=== PATIENT | male | born 1945 | race Caucasian/White ===

== ENCOUNTER 2021-03-01 08:57 | Inpatient (IN) | payer OTHER, MEDICARE ==
--- NOTE | 2021-03-01 09:11 | EDM.PDOC ---
ED HPI GENERAL MEDICAL PROBLEM - General Chief Complaint: Neuro Symptoms/Deficits Stated Complaint: [facility] Time Seen by Provider: 03/01/21 08:57 - History of Present Illness INITIAL COMMENTS - FREE TEXT/NARRATIVE: 75-year-old male presents the emergency room brought in from a [facility] EMS service with speech problems and left-sided weakness. Last known normal: 9 PM last evening now 12 hours out. Patient is on Plavix. Patient is known by the EMS staff who believes his speech is worse than normal. They also noticed abnormal [id number] on the left side. Yesterday the patient had been falling more frequently than normal. He has a splint on his right lower leg and ulcerations consistent with diabetes on his left leg. He normally has no problems getting up from his falls however he got out of bed at some time during the night and fell could not get himself up his found him like this this morning. There was a test cell technician intercept with the [facility], test cell technician noticed that the patient was in atrial fib. At this time the patient cannot explain why he had difficulty getting self up from his fall. He thinks his speech is normal. And he does not believe he has any weakness at this point. The patient is alert and oriented. 11:00 At the opportunity discussed the patient's situation with the patient's patient thinks his speech and strength is all at baseline he is just getting progressively weaker over time. The patient has an ankle fracture he was treated at the [facility] here in [place]. The patient thought he was treated at the hospital here but I cannot find any information on this. - Related Data Allergies Allergy/AdvReac Type Severity Reaction Status Date / Time Penicillins Allergy Rash Verified 03/01/21 11:02 Home Meds: Home Meds Cholecalciferol (Vitamin D3) [Vitamin D3] 2,000 unit PO DAILY 12/26/20 [History] Clopidogrel Bisulfate [Plavix] 75 mg PO DAILY 12/26/20 [History] Latanoprost/Pf [Latanoprost 0.005% Eye Drop] 1 drop EYERT BEDTIME 12/26/20 [History] Nortriptyline HCl [Pamelor] 50 mg PO BEDTIME 12/26/20 [History] PARoxetine HCl [Paxil] 20 mg PO DAILY 12/26/20 [History] Rosuvastatin Calcium 20 mg PO BEDTIME 12/26/20 [History] metFORMIN [Glucophage] 850 mg PO BIDMEALS 12/26/20 [History] Multivitamin-Min/Iron/FA/Vit K [Multi-Day Plus Minerals Tablet] 1 tab PO DAILY 12/27/20 [History] Metoprolol Succinate 200 mg PO DAILY #20 tab.er.24h 12/29/20 [Rx] Spironolactone [Aldactone] 25 mg PO DAILY #20 tablet 12/29/20 [Rx] Torsemide 40 mg PO DAILY 03/01/21 [History] Valsartan 160 mg PO DAILY 03/01/21 [History] Past Medical History HEENT History: Reports: Glaucoma Cardiovascular History: Reports: High Cholesterol, Hypertension, Stents, Other (See Below) Other Cardiovascular History: stents to bilat legs for circulation cardiac stents also Neurological History: Reports: Neuropathy, Peripheral, Other (See Below) Other Neuro History: Restless leg syndrome. Psychiatric History: Reports: Depression, Other (See Below) Other Psychiatric History: Pt is forgetful at times Endocrine/Metabolic History: Reports: Diabetes, Type II - Infectious Disease History Infectious Disease History: Reports: Chicken Pox, Measles, Mumps - Past Surgical History HEENT Surgical History: Reports: Cataract Surgery, Oral Surgery Cardiovascular Surgical History: Reports: Coronary Artery Stent Endocrine Surgical History: Reports: None Neurological Surgical History: Reports: None Social & Family History - Family History Family Medical History: Unobtainable - Caffeine Use Caffeine Use: Reports: Coffee ED ROS GENERAL - Review of Systems Review Of Systems: See Below Constitutional: Reports: No Symptoms HEENT: Reports: No Symptoms Respiratory: Reports: No Symptoms Cardiovascular: Reports: No Symptoms GI/Abdominal: Reports: No Symptoms : Reports: No Symptoms Musculoskeletal: Reports: No Symptoms Neurological: Reports: Weakness (Reported left-sided weakness and difficulty doing [id number]). Denies: Headache Psychiatric: Reports: No Symptoms ED EXAM, GENERAL - Physical Exam Exam: See Below Exam Limited By: No Limitations General Appearance: Alert, No Apparent Distress Eye Exam: Bilateral Eye: PERRL Ears: Normal External Exam, Normal Canal, Hearing Grossly Normal, Normal TMs, Other Nose: Normal Inspection, Normal Mucosa Throat/Mouth: Normal Inspection, Normal Lips, Other (Mucous appears dry). No: Normal Teeth (dentures) Head: Atraumatic, Normocephalic Neck: Normal Inspection, Supple, Non-Tender, Full Range of Motion Respiratory/Chest: No Respiratory Distress, Lungs Clear, Normal Breath Sounds Cardiovascular: Normal Peripheral Pulses, Regular Rate, Rhythm, Other (trace edema) GI/Abdominal: Normal Bowel Sounds, Soft, Non-Tender Extremities: Normal Inspection, Normal Range of Motion, Other (Walking boot was removed from right lower extremity no obvious defect deformity he is got some superficial skin changes) Neurological: Other (No appreciable weakness is got significant disease most likely due to his diabetes) Skin Exam: Other (Multiple foot ulcerations) Lymphatic: No Adenopathy #2 Interpretation EKG Date: 03/01/21 Rhythm: NSR Rate (Beats/Min): 78 [place]: Normal P-Wave: Present QRS: Wide (Interventricular conduction delay) ST-T: Other (Inverted T waves V5 V6 aVF lead III, lead II) QT: Normal HI/PQ Interval: First-degree AV block Comparison: No Change (No significant change from 12/26/2020) EKG Interpretation Comments: Abnormal EKG Course - Vital Signs Last Recorded V/S: Last Vital Signs Temp 35.9 C L 03/01/21 08:57 Pulse 74 03/01/21 08:57 Resp 16 03/01/21 08:57 BP 143/84 H 03/01/21 08:57 Pulse Ox 95 03/01/21 08:57 - Orders/Labs/Meds Orders: Active Orders 24 hr Category Date Time Status Sodium Chloride 0.9% [Normal Saline] 1,000 ml Med 03/01/21 10:30 Active IV ASDIRECTED Medication Orders Sodium Chloride (Normal Saline) 1,000 mls @ 75 mls/hr IV ASDIRECTED HORACIO Last Admin: 03/01/21 10:50 Dose: 75 mls/hr Documented by: SWETHA Labs: Laboratory Tests 03/01/21 03/01/21 03/01/21 Range/Units 09:00 09:00 09:00 WBC 10.04 H (4.23-9.07) K/mm3 RBC 3.69 L (4.63-6.08) M/mm3 Hgb 11.6 L (13.7-17.5) gm/dl Hct 35.6 L (40.1-51.0) % MCV 96.5 H D (79.0-92.2) fl MCH 31.4 (25.7-32.2) pg MCHC 32.6 (32.2-35.5) g/dl RDW Std Deviation 51.0 H (35.1-43.9) fL Plt Count 317 (163-337) K/mm3 MPV 8.8 L (9.4-12.3) fl Neut % (Auto) 76.5 H (34.0-67.9) % Lymph % (Auto) 14.4 L (21.8-53.1) % Howard % (Auto) 7.6 (5.3-12.2) % Eos % (Auto) 1.0 (0.8-7.0) Baso % (Auto) 0.3 (0.1-1.2) % Neut # (Auto) 7.68 H (1.78-5.38) K/mm3 Lymph # (Auto) 1.45 (1.32-3.57) K/mm3 Howard # (Auto) 0.76 (0.30-0.82) K/mm3 Eos # (Auto) 0.10 (0.04-0.54) K/mm3 Baso # (Auto) 0.03 (0.01-0.08) K/mm3 PT 11.9 (9.7-12.0) SECONDS INR 1.08 APTT 29.8 (21.7-31.4) SECONDS Sodium 134 L (136-145) mEq/L Potassium 4.9 (3.5-5.1) mEq/L Chloride 99 (98-107) mEq/L Carbon Dioxide 25 (21-32) mEq/L Anion Gap 14.9 (5-15) BUN 60 H D (7-18) mg/dL Creatinine 2.3 H (0.7-1.3) mg/dL Est Cr Clr Drug Dosing TNP Estimated GFR (MDRD) 28 (>60) mL/min BUN/Creatinine Ratio 26.1 H (14-18) Glucose 133 H (70-99) mg/dL Hemoglobin A1c ( - 5.6) % Calcium 8.6 (8.5-10.1) mg/dL Total Bilirubin 0.8 (0.2-1.0) mg/dL AST 24 (15-37) U/L ALT 34 (16-63) U/L Alkaline Phosphatase 84 (46-116) U/L Troponin I < 0.017 (0.00-0.056) ng/mL Total Protein 7.1 (6.4-8.2) g/dl Albumin 3.3 L (3.4-5.0) g/dl Globulin 3.8 gm/dL Albumin/Globulin Ratio 0.9 L (1-2) SARS-CoV-2 RNA (JERRY) (NEGATIVE) 03/01/21 03/01/21 Range/Units 09:00 09:47 WBC (4.23-9.07) K/mm3 RBC (4.63-6.08) M/mm3 Hgb (13.7-17.5) gm/dl Hct (40.1-51.0) % MCV (79.0-92.2) fl MCH (25.7-32.2) pg MCHC (32.2-35.5) g/dl RDW Std Deviation (35.1-43.9) fL Plt Count (163-337) K/mm3 MPV (9.4-12.3) fl Neut % (Auto) (34.0-67.9) % Lymph % (Auto) (21.8-53.1) % Howard % (Auto) (5.3-12.2) % Eos % (Auto) (0.8-7.0) Baso % (Auto) (0.1-1.2) % Neut # (Auto) (1.78-5.38) K/mm3 Lymph # (Auto) (1.32-3.57) K/mm3 Howard # (Auto) (0.30-0.82) K/mm3 Eos # (Auto) (0.04-0.54) K/mm3 Baso # (Auto) (0.01-0.08) K/mm3 PT (9.7-12.0) SECONDS INR APTT (21.7-31.4) SECONDS Sodium (136-145) mEq/L Potassium (3.5-5.1) mEq/L Chloride (98-107) mEq/L Carbon Dioxide (21-32) mEq/L Anion Gap (5-15) BUN (7-18) mg/dL Creatinine (0.7-1.3) mg/dL Est Cr Clr Drug Dosing Estimated GFR (MDRD) (>60) mL/min BUN/Creatinine Ratio (14-18) Glucose (70-99) mg/dL Hemoglobin A1c 6.3 H ( - 5.6) % Calcium (8.5-10.1) mg/dL Total Bilirubin (0.2-1.0) mg/dL AST (15-37) U/L ALT (16-63) U/L Alkaline Phosphatase (46-116) U/L Troponin I (0.00-0.056) ng/mL Total Protein (6.4-8.2) g/dl Albumin (3.4-5.0) g/dl Globulin gm/dL Albumin/Globulin Ratio (1-2) SARS-CoV-2 RNA (JERRY) Negative (NEGATIVE) Meds: Medications Generic Name Dose Route Start Last Admin Trade Name Freq PRN Reason Stop Dose Admin Sodium Chloride 1,000 mls @ 75 mls/hr 03/01/21 10:30 03/01/21 10:50 Normal Saline IV 75 mls/hr ASDIRECTED [facility] Administration - Re-Assessments/Exams Free Text/Narrative Re-Assessment/Exam: 03/01/21 10:[address] is negative for any acute intracranial abnormalities his exam is inconsistent with a stroke however I cannot exclude TIA. EMS thought he was in A. fib further increasing his risk factors. The case was discussed with Dr. Blackmon, on-call neurologist at [facility] believes the patient should be transferred however they are not sure they have beds 1 call will get back to me if they can actually accept this patient and if they do it will be not immediately. 03/01/21 14:27 MRI shows no acute changes. Will discuss with the hospitalist to get him to address his renal functions and other medical conditions. 03/01/21 15:[address] Shipman, our hospitalist who will kindly assume care of the patient. Departure - Departure Time of Disposition: 15:09 Disposition: Admitted As Inpatient 68 Clinical Impression: Prerenal renal failure, Frequent falls, Dehydration - Discharge Information Referrals: Mary Jane Vaca MD [Primary Care Provider] - Forms: ED Department Discharge Sepsis Event Note (ED) - Focused Exam Vital Signs: Vital Signs Temp Pulse Resp BP Pulse Ox 03/01/21 08:57 35.9 C L 74 16 143/84 H 95 - My Orders Last 24 Hours: My Active Orders 03/01/21 10:30 Sodium Chloride 0.9% [Normal Saline] 1,000 ml IV ASDIRECTED - Assessment/Plan Last 24 Hours: My Active Orders 03/01/21 10:30 Sodium Chloride 0.9% [Normal Saline] 1,000 ml IV ASDIRECTED
--- NOTE | 2021-03-01 09:26 | CT ---
Head CT Technique: Multiple axial sections through the brain were obtained. Intravenous contrast was not utilized. Reconstructed coronal and sagittal images were also obtained. Comparison: Prior head CT study of 12/26/20. Findings: Ventricles along with basal cisterns and sulci over the convexities are slightly prominent. Diminished density is noted within portions of the periventricular white matter compatible with small vessel ischemic demyelination change. No other abnormal parenchymal densities are seen. No evidence of intracranial hemorrhage is seen. No midline shift or mass-effect is seen. Atherosclerotic calcification is seen within the vertebral arteries as well as carotid siphon. Bone window settings were reviewed. Visualized paranasal sinuses show nothing acute. Minimal mucosal thickening is seen within the inferior left mastoid sinus. Right mastoid sinus is clear. Impression: 1. Minimal mucosal thickening within the inferior left mastoid sinus which is most likely incidental. 2. Mild senescent change as noted above. 3. No acute intracranial abnormality is appreciated. Note: If patient's symptoms warrant further evaluation, MRI study could be considered. Diagnostic code #2
--- NOTE | 2021-03-01 09:55 | CR ---
Chest: Frontal view of the chest was obtained. Comparison: Prior chest x-ray of 12/26/20. Heart is enlarged. Lungs appear clear with no acute parenchymal change. Bony structures show nothing acute. Impression: 1. Cardiomegaly. Nothing acute is otherwise seen on frontal chest x-ray. Diagnostic code #3
[2021-03-01 10:28] LABS: HEMOGLOBIN A1C 6.3 %
[2021-03-01] MEDS: Sodium Chloride 0.9% 1,000 ML IV SCH (10:50)
--- NOTE | 2021-03-01 13:14 | MR ---
MRI brain Technique: T1 sagittal; T2, T2 FLAIR, T1 and diffusion axial; T1 weighted coronal images were also obtained. Comparison: Prior head CT exam performed earlier on the same day (9:02 AM). Findings: Ventricles along with basal cisterns and sulci over the convexities are mildly prominent. Increased signal is seen on the FLAIR sequence within the subcortical and periventricular white matter compatible with small vessel ischemic demyelination change. There is normal signal void seen within the major cerebral arteries within the skull base. Diffusion weighted images show nothing acute. Small retention cyst is noted within the right maxillary sinus measuring 1.3 cm. Impression: 1. Senescent change as noted above. 2. No acute diffusion abnormalities are seen. Diagnostic code #2
[2021-03-01] MEDS ORDERED: Ondansetron 4 MG/2 ML SDV IV PRN (17:16)
--- NOTE | 2021-03-01 19:50 | PCM.HP.2 ---
H&P History of Present Illness - General Date of Service: 03/01/21 Admit Problem/Dx: Admission Diagnosis/Problem Admission Diagnosis/Problem Prerenal renal failure - History of Present Illness Initial Comments - Free Text/Narative: 75-year-old male who recently had lower extremity vascular surgery in [place] presented to the emergency department secondary to bilateral lower extremity pain. Currently patient states he is having no pain. Pain is worse with ambulation. 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 Initially patient was believed to have neurological symptoms consistent with a stroke. EMS staff believed his speech was worse than normal and noticed abnormal [id number] on the left. Yesterday patient was falling more frequently than normal per emergency department notes. MRI of the brain was done in the emergency department which was negative for acute changes. Chest x-ray showed cardiomegaly but nothing otherwise acute. Lab work did demonstrate a BUN of 60 with a creatinine of 2.3 which is significantly worse than when he was here and November. No records are available from his hospitalization in [place]. Patient has a walking boot on his right leg. EKG shows normal sinus rhythm with ventricular rate of 78 bpm. Interventricular conduction delay with inverted T waves in V5, 6, aVF, lead III, lead II. First- degree AV block. White count was 10.04. - Related Data Allergies/Adverse Reactions: Allergies Allergy/AdvReac Type Severity Reaction Status Date / Time Penicillins Allergy Rash Verified 03/01/21 11:02 Home Medications: Home Meds Cholecalciferol (Vitamin D3) [Vitamin D3] 2,000 unit PO DAILY 12/26/20 [History] Clopidogrel Bisulfate [Plavix] 75 mg PO DAILY 12/26/20 [History] Latanoprost/Pf [Latanoprost 0.005% Eye Drop] 1 drop EYERT BEDTIME 12/26/20 [History] Nortriptyline HCl [Pamelor] 50 mg PO BEDTIME 12/26/20 [History] PARoxetine HCl [Paxil] 20 mg PO DAILY 12/26/20 [History] Rosuvastatin Calcium 20 mg PO BEDTIME 12/26/20 [History] metFORMIN [Glucophage] 850 mg PO BIDMEALS 12/26/20 [History] Multivitamin-Min/Iron/FA/Vit K [Multi-Day Plus Minerals Tablet] 1 tab PO DAILY 12/27/20 [History] Metoprolol Succinate 200 mg PO DAILY #20 tab.er.24h 12/29/20 [Rx] Spironolactone [Aldactone] 25 mg PO DAILY #20 tablet 12/29/20 [Rx] Torsemide 40 mg PO DAILY 03/01/21 [History] Valsartan 160 mg PO DAILY 03/01/21 [History] Past Medical History HEENT History: Reports: Glaucoma Cardiovascular History: Reports: Heart Failure, High Cholesterol, Hypertension, Stents, Other (See Below) Other Cardiovascular History: stents to bilat legs for circulation cardiac stents also Respiratory History: Reports: COPD Genitourinary History: Reports: Other (See Below) Other Genitourinary History: bladder cancer. Musculoskeletal History: Reports: Fracture Other Musculoskeletal History: rt ankle fracure in Jan 2021- wearing walking boot Neurological History: Reports: Neuropathy, Peripheral, Other (See Below) Other Neuro History: Restless leg syndrome. Psychiatric History: Reports: Depression, Other (See Below) Other Psychiatric History: Pt is forgetful at times Endocrine/Metabolic History: Reports: Diabetes, Type II Hematologic History: Reports: Anemia Oncologic (Cancer) History: Reports: Bladder Dermatologic History: Reports: Other (See Below) Other Dermatologic History: open and scabbed areas to arms/legs--"scratch myself bad." - Infectious Disease History Infectious Disease History: Reports: Chicken Pox, Measles, Mumps - Past Surgical History HEENT Surgical History: Reports: Cataract Surgery, Oral Surgery Cardiovascular Surgical History: Reports: Coronary Artery Stent Male Surgical History: Reports: TURBT-Transurethral Resection of Bladder Tumor Other Male Surgeries/Procedures: [place] for f/u Endocrine Surgical History: Reports: None Neurological Surgical History: Reports: None Social & Family History - Family History Family Medical History: Unobtainable - Tobacco Use Tobacco Use Status *Q: Current Every Day Tobacco User Years of Tobacco use: 60 Packs/Tins Daily: 1 - Caffeine Use Caffeine Use: Reports: Soda - Recreational Drug Use Recreational Drug Use: No H&P Review of Systems - Review of Systems: Review Of Systems: Comprehensive ROS is negative, except as noted in HPI. Exam - Exam Exam: See Below - Vital Signs Vital Signs: Last Vital Signs Temp 96.0 F L 03/01/21 17:55 Pulse 78 03/01/21 17:55 Resp 18 03/01/21 17:55 BP 142/89 H 03/01/21 17:55 Pulse Ox 97 03/01/21 17:55 Weight: 190 lb 12.8 oz - Exam Quality Assessment: No: Supplemental Oxygen General: Alert, Oriented, 4 HEENT: Conjunctiva Clear, Hearing Intact, Mucosa Moist & [place], Nares Patent Neck: Supple, Trachea Midline, 2 Lungs: Normal Respiratory Effort, Wheezing (Throughout both lung conley) Cardiovascular: Regular Rate, Regular Rhythm GI/Abdominal Exam: Normal Bowel Sounds, Soft, Non-Tender, No Organomegaly, No Distention, No Abnormal Bruit, No Mass Extremities: Normal Inspection, Normal Range of Motion, Non-Tender, No Pedal Edema, Normal Capillary Refill Skin: Other (Excoriations of the left lower extremity. Walking boot on the right.) Neurological: Cranial Nerves Intact Neuro Extensive - Mental Status: Alert, Oriented x3, Normal Mood/Affect - Patient Data Lab Results Last 24 hrs: Laboratory Results - last 24 hr 03/01/21 03/01/21 03/01/21 Range/Units 09:00 09:00 09:00 WBC 10.04 H (4.23-9.07) K/mm3 RBC 3.69 L (4.63-6.08) M/mm3 Hgb 11.6 L (13.7-17.5) gm/dl Hct 35.6 L (40.1-51.0) % MCV 96.5 H D (79.0-92.2) fl MCH 31.4 (25.7-32.2) pg MCHC 32.6 (32.2-35.5) g/dl RDW Std Deviation 51.0 H (35.1-43.9) fL Plt Count 317 (163-337) K/mm3 MPV 8.8 L (9.4-12.3) fl Neut % (Auto) 76.5 H (34.0-67.9) % Lymph % (Auto) 14.4 L (21.8-53.1) % [place] % (Auto) 7.6 (5.3-12.2) % Eos % (Auto) 1.0 (0.8-7.0) Baso % (Auto) 0.3 (0.1-1.2) % Neut # (Auto) 7.68 H (1.78-5.38) K/mm3 Lymph # (Auto) 1.45 (1.32-3.57) K/mm3 [place] # (Auto) 0.76 (0.30-0.82) K/mm3 Eos # (Auto) 0.10 (0.04-0.54) K/mm3 Baso # (Auto) 0.03 (0.01-0.08) K/mm3 PT 11.9 (9.7-12.0) SECONDS INR 1.08 APTT 29.8 (21.7-31.4) SECONDS Sodium 134 L (136-145) mEq/L Potassium 4.9 (3.5-5.1) mEq/L Chloride 99 (98-107) mEq/L Carbon Dioxide 25 (21-32) mEq/L Anion Gap 14.9 (5-15) BUN 60 H D (7-18) mg/dL Creatinine 2.3 H (0.7-1.3) mg/dL Est Cr Clr Drug Dosing TNP Estimated GFR (MDRD) 28 (>60) mL/min BUN/Creatinine Ratio 26.1 H (14-18) Glucose 133 H (70-99) mg/dL Hemoglobin A1c ( - 5.6) % Calcium 8.6 (8.5-10.1) mg/dL Total Bilirubin 0.8 (0.2-1.0) mg/dL AST 24 (15-37) U/L ALT 34 (16-63) U/L Alkaline Phosphatase 84 (46-116) U/L Troponin I < 0.017 (0.00-0.056) ng/mL NT-Pro-B Natriuret Pep (0-125) pg/mL Total Protein 7.1 (6.4-8.2) g/dl Albumin 3.3 L (3.4-5.0) g/dl Globulin 3.8 gm/dL Albumin/Globulin Ratio 0.9 L (1-2) SARS-CoV-2 RNA (JERRY) (NEGATIVE) 03/01/21 03/01/21 03/01/21 Range/Units 09:00 09:47 18:19 WBC (4.23-9.07) K/mm3 RBC (4.63-6.08) M/mm3 Hgb (13.7-17.5) gm/dl Hct (40.1-51.0) % MCV (79.0-92.2) fl MCH (25.7-32.2) pg MCHC (32.2-35.5) g/dl RDW Std Deviation (35.1-43.9) fL Plt Count (163-337) K/mm3 MPV (9.4-12.3) fl Neut % (Auto) (34.0-67.9) % Lymph % (Auto) (21.8-53.1) % [place] % (Auto) (5.3-12.2) % Eos % (Auto) (0.8-7.0) Baso % (Auto) (0.1-1.2) % Neut # (Auto) (1.78-5.38) K/mm3 Lymph # (Auto) (1.32-3.57) K/mm3 [place] # (Auto) (0.30-0.82) K/mm3 Eos # (Auto) (0.04-0.54) K/mm3 Baso # (Auto) (0.01-0.08) K/mm3 PT (9.7-12.0) SECONDS INR APTT (21.7-31.4) SECONDS Sodium (136-145) mEq/L Potassium (3.5-5.1) mEq/L Chloride (98-107) mEq/L Carbon Dioxide (21-32) mEq/L Anion Gap (5-15) BUN (7-18) mg/dL Creatinine (0.7-1.3) mg/dL Est Cr Clr Drug Dosing Estimated GFR (MDRD) (>60) mL/min BUN/Creatinine Ratio (14-18) Glucose (70-99) mg/dL Hemoglobin A1c 6.3 H ( - 5.6) % Calcium (8.5-10.1) mg/dL Total Bilirubin (0.2-1.0) mg/dL AST (15-37) U/L ALT (16-63) U/L Alkaline Phosphatase (46-116) U/L Troponin I (0.00-0.056) ng/mL NT-Pro-B Natriuret Pep 39022 H (0-125) pg/mL Total Protein (6.4-8.2) g/dl Albumin (3.4-5.0) g/dl Globulin gm/dL Albumin/Globulin Ratio (1-2) SARS-CoV-2 RNA (JERRY) Negative (NEGATIVE) Result Diagrams: 03/01/21 09:00 03/01/21 09:00 Sepsis Event Note - Evaluation Sepsis Screening Result: No Definite Risk - Focused Exam Vital Signs: Vital Signs Temp Pulse Resp BP Pulse Ox Pulse Ox 03/01/21 17:55 96.0 F L 78 18 142/89 H 97 03/01/21 17:36 95 03/01/21 08:57 96.6 F L 74 16 143/84 H 95 - Problem List (1) Leg pain, bilateral SNOMED Code(s): 70786145, 034000342 ICD Code: M79.604 - PAIN IN RIGHT LEG; M79.605 - PAIN IN LEFT LEG Status: Acute Current Visit: Yes (2) Acute renal insufficiency SNOMED Code(s): 034802895 ICD Code: N28.9 - DISORDER OF KIDNEY AND URETER, UNSPECIFIED Status: Acute Current Visit: Yes (3) Prerenal acute renal failure SNOMED Code(s): 362476599203741 ICD Code: N17.9 - ACUTE KIDNEY FAILURE, UNSPECIFIED Status: Acute Current Visit: Yes (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 SNOMED Code(s): 41949625, 749618836 ICD Code: I50.40 - UNSP COMBINED SYSTOLIC AND DIASTOLIC (CONGESTIVE) HRT FAIL Status: Acute Priority: High Current Visit: No Qualifiers: Heart failure chronicity: acute Qualified Code(s): I50.41 - Acute combined systolic (congestive) and diastolic (congestive) heart failure (5) Elevated brain natriuretic peptide (BNP) level SNOMED Code(s): 225324755, 123485010 ICD Code: R79.89 - OTHER SPECIFIED ABNORMAL FINDINGS OF BLOOD CHEMISTRY Status: Acute Priority: High Current Visit: No (6) Generalized weakness SNOMED Code(s): 81150839 ICD Code: R53.1 - WEAKNESS Status: Acute Priority: High Current Visit: No (7) HTN (hypertension) SNOMED Code(s): 46755813 ICD Code: I10 - ESSENTIAL (PRIMARY) HYPERTENSION Status: Chronic Priority: Medium Current Visit: No Qualifiers: Hypertension type: unspecified Qualified Code(s): I10 - Essential (primary) hypertension (8) History of coronary artery stent placement SNOMED Code(s): 735574267, 884329694 ICD Code: Z95.5 - PRESENCE OF CORONARY ANGIOPLASTY IMPLANT AND GRAFT Status: Chronic Priority: Low Current Visit: No Problem List Initiated/Reviewed/Updated: Yes Orders Last 24hrs: Active Orders 24 hr Category Date Time Status Admission Status [Patient Status] [ADT] Routine ADT 03/01/21 15:40 Active Oxygen Therapy [RC] PRN Care 03/01/21 17:16 Active Up With Assistance [RC] ASDIRECTED Care 03/01/21 17:16 Active VTE/DVT Education [RC] PER UNIT ROUTINE Care 03/01/21 17:16 Active Vital Signs [RC] Q4H Care 03/01/21 17:16 Active PT Evaluation and Treatment [CONS] Routine Cons 03/01/21 17:16 Active Consistent Carbohydrate Diet [DIET] Diet 03/01/21 Dinner Active Acetaminophen [TylenoL] Med 03/01/21 17:16 Active 650 mg PO Q4H PRN Clopidogrel [Plavix] Med 03/02/21 09:00 Active 75 mg PO DAILY Enoxaparin [Lovenox] Med 03/02/21 09:00 Active 40 mg SUBCUT DAILY Metoprolol Succinate [Toprol XL] Med 03/02/21 09:00 Active 200 mg PO DAILY Nortriptyline Med 03/01/21 21:00 Active 50 mg PO BEDTIME Ondansetron [Zofran] Med 03/01/21 17:16 Active 4 mg IV Q6H PRN PARoxetine [Paxil] Med 03/02/21 09:00 Active 20 mg PO DAILY Rosuvastatin [Crestor] Med 03/01/21 21:00 Active 20 mg PO BEDTIME Sodium Chloride 0.9% [Normal Saline] 1,000 ml Med 03/01/21 10:30 Active IV ASDIRECTED Spironolactone [Aldactone] Med 03/02/21 09:00 Active 25 mg PO DAILY Weight bearing status [OM.PC] Routine Oth 03/01/21 18:27 Ordered Resuscitation Status Routine Resus Stat 03/01/21 17:16 Ordered Medication Orders Acetaminophen (Acetaminophen 325 Mg Tab) 650 mg PO Q4H PRN PRN Reason: Pain (Mild 1-3)/fever Clopidogrel Bisulfate (Clopidogrel 75 Mg Tab) 75 mg PO DAILY [facility] Enoxaparin Sodium (Enoxaparin 40 Mg/0.4 Ml Syringe) 40 mg SUBCUT DAILY [facility] Sodium Chloride (Normal Saline) 1,000 mls @ 75 mls/hr IV ASDIRECTED [facility] Last Admin: 03/01/21 10:50 Dose: 75 mls/hr Documented by: SWETHA Metoprolol Succinate (Metoprolol Succinate 50 Mg Tab.Er) 200 mg PO DAILY [facility] Nortriptyline HCl (Nortriptyline 25 Mg Cap) 50 mg PO BEDTIME [facility] Ondansetron HCl (Ondansetron 4 Mg/2 Ml Sdv) 4 mg IV Q6H PRN PRN Reason: Nausea/Vomiting Paroxetine HCl (Paroxetine 20 Mg Tab) 20 mg PO DAILY [facility] Rosuvastatin Calcium (Rosuvastatin 10 Mg Tab) 20 mg PO BEDTIME [facility] Spironolactone (Spironolactone 25 Mg Tab) 25 mg PO DAILY [facility] Assessment/Plan Comment:: 75-year-old male with history of diabetes, peripheral vascular disease, mixed congestive heart failure presents to the emergency department with lower extremity pain. Lower extremity pain Peripheral vascular disease post lower extremity vascular stenting Coronary artery disease * Patient presents with worsening pain in his lower extremities. * Initial concern for CVA ruled out with MRI * Currently patient states he is having no pain. Pain is worse with ambulation. 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 Pseudonormal, grade 2, pattern of LV diastolic filling. Trace aortic and mitral valve regurgitation. * proBNP today is 27,672. This is likely spuriously high because of his renal failure. Patient has only minimal lower extremity edema and chest x-ray shows no significant vascular congestion. Lung sounds are mainly significant for wheezing. Diabetes * Hemoglobin A1c 6.3 * Home medications include Metformin Acute on chronic renal insufficiency/prerenal * BUN 60 and creatinine 2.3 * When patient was discharged from here in November creatinine was 1.3 * Estimated GFR 28 today and 54 on December 29 * Currently on torsemide 40 mg daily and spironolactone 25 mg daily Tobaccoism/COPD * Lungs wheezy throughout Review of his previous hospitalization shows he was discharged on Entresto which is not on his home meds at this time. He was also sent home on 40 mg of Lasix and 25 mg of spironolactone. This apparently was changed to torsemide 40 mg. Patient was also started on valsartan as an outpatient instead of Entresto. Plan * Admit to medical floor on telemetry * PT * Gradual and cautious fluid resuscitation secondary to prerenal failure. * Close monitoring of respiratory status * Offer nicotine patch * Hold torsemide and continue spironolactone * Hold valsartan secondary to renal failure * Sliding scale insulin and bedside glucose monitoring 4 times daily * Lyle for foot pain and continue nortriptyline 50 mg daily * VTE prophylaxis with Lovenox * CODE STATUS: Full code - Mortality Measure Prognosis:: Good
[2021-03-01] MEDS ORDERED: Acetaminophen/HYDROcodone 325-5 MG Tab PO PRN (19:54)
[2021-03-01] MEDS: Nortriptyline 25 MG Cap PO SCH (20:37)
[2021-03-01] MEDS: Albuterol/Ipratropium 3.0-0.5 MG/3 ML Neb Soln NEB SCH (20:48)
[2021-03-01] MEDS ORDERED: Rosuvastatin 10 MG Tab PO SCH (21:00)
[2021-03-01] MEDS: Insulin Lispro 100 Unit/ML 3 ML KwikPen SUBCUT SCH (21:18)
[2021-03-02] MEDS: Albuterol/Ipratropium 3.0-0.5 MG/3 ML Neb Soln NEB SCH ×4 (02:50→20:36)
[2021-03-02] MEDS: Acetaminophen 325 MG Tab PO PRN (04:56)
[2021-03-02] MEDS: Sodium Chloride 0.9% 1,000 ML IV SCH (06:44)
[2021-03-02] MEDS: Insulin Lispro 100 Unit/ML 3 ML KwikPen SUBCUT SCH ×4 (06:52→21:26)
[2021-03-02] MEDS: PARoxetine 20 MG Tab PO SCH (09:36)
[2021-03-02] MEDS: Metoprolol Succinate 50 MG Tab.ER PO SCH (09:36)
[2021-03-02] MEDS: Clopidogrel 75 MG Tab PO SCH (09:36)
[2021-03-02] MEDS: Spironolactone 25 MG Tab PO SCH (09:36)
[2021-03-02] MEDS: Enoxaparin 40 MG/0.4 ML Syringe SUBCUT SCH (09:37)
--- NOTE | 2021-03-02 13:01 | PCM.PN ---
- General Info Date of Service: 03/02/21 Admission Dx/Problem (Free Text): Admission Diagnosis/Problem Admission Diagnosis/Problem Prerenal renal failure Subjective Update: Patient states he continues to feel well. He denies any shortness of breath. He has had some increased swelling in his legs. He did not keep on the overnight oximetry. There was concern that he has some apneic episodes while sleeping. During the day today he did have a drop in his oxygen saturations into the 80s while he slept requiring supplemental O2. He came right off the oxygen when he woke up. Oxygen saturations were in the mid 90s Functional Status: Reports: Pain Controlled - Review of Systems General: Reports: No Symptoms HEENT: Reports: No Symptoms Pulmonary: Reports: No Symptoms Cardiovascular: Reports: No Symptoms Musculoskeletal: Reports: No Symptoms Neurological: Reports: No Symptoms Psychiatric: Reports: No Symptoms - Patient Data Vitals - Most Recent: Last Vital Signs Temp 96.6 F L 03/02/21 11:58 Pulse 76 03/02/21 11:58 Resp 19 03/02/21 11:58 BP 147/91 H 03/02/21 11:58 Pulse Ox 91 L 03/02/21 11:58 Weight - Most Recent: 192 lb 3.2 oz I&O - Last 24 Hours: Intake & Output 03/01/21 03/02/21 03/02/21 22:59 06:59 14:59 Intake Total 1293 Output Total 1450 Balance -157 Lab Results Last 24 Hours: Laboratory Results - last 24 hr 03/01/21 03/01/21 03/02/21 Range/Units 18:19 21:05 05:40 WBC 8.28 (4.23-9.07) K/mm3 RBC 3.82 L (4.63-6.08) M/mm3 Hgb 12.0 L (13.7-17.5) gm/dl Hct 36.8 L (40.1-51.0) % MCV 96.3 H (79.0-92.2) fl MCH 31.4 (25.7-32.2) pg MCHC 32.6 (32.2-35.5) g/dl RDW Std Deviation 51.4 H (35.1-43.9) fL Plt Count 294 (163-337) K/mm3 MPV 8.9 L (9.4-12.3) fl Neut % (Auto) 77.3 H (34.0-67.9) % Lymph % (Auto) 14.3 L (21.8-53.1) % [place] % (Auto) 7.0 (5.3-12.2) % Eos % (Auto) 0.8 (0.8-7.0) Baso % (Auto) 0.4 (0.1-1.2) % Neut # (Auto) 6.40 H (1.78-5.38) K/mm3 Lymph # (Auto) 1.18 L (1.32-3.57) K/mm3 [place] # (Auto) 0.58 (0.30-0.82) K/mm3 Eos # (Auto) 0.07 (0.04-0.54) K/mm3 Baso # (Auto) 0.03 (0.01-0.08) K/mm3 Sodium (136-145) mEq/L Potassium (3.5-5.1) mEq/L Chloride (98-107) mEq/L Carbon Dioxide (21-32) mEq/L Anion Gap (5-15) BUN (7-18) mg/dL Creatinine (0.7-1.3) mg/dL Est Cr Clr Drug Dosing mL/min Estimated GFR (MDRD) (>60) mL/min BUN/Creatinine Ratio (14-18) Glucose (70-99) mg/dL POC Glucose 134 H (70-99) mg/dL Calcium (8.5-10.1) mg/dL Magnesium (1.8-2.4) mg/dL Total Bilirubin (0.2-1.0) mg/dL AST (15-37) U/L ALT (16-63) U/L Alkaline Phosphatase (46-116) U/L NT-Pro-B Natriuret Pep 85978 H (0-125) pg/mL Total Protein (6.4-8.2) g/dl Albumin (3.4-5.0) g/dl Globulin gm/dL Albumin/Globulin Ratio (1-2) 03/02/21 03/02/21 03/02/21 Range/Units 05:40 06:28 11:25 WBC (4.23-9.07) K/mm3 RBC (4.63-6.08) M/mm3 Hgb (13.7-17.5) gm/dl Hct (40.1-51.0) % MCV (79.0-92.2) fl MCH (25.7-32.2) pg MCHC (32.2-35.5) g/dl RDW Std Deviation (35.1-43.9) fL Plt Count (163-337) K/mm3 MPV (9.4-12.3) fl Neut % (Auto) (34.0-67.9) % Lymph % (Auto) (21.8-53.1) % [place] % (Auto) (5.3-12.2) % Eos % (Auto) (0.8-7.0) Baso % (Auto) (0.1-1.2) % Neut # (Auto) (1.78-5.38) K/mm3 Lymph # (Auto) (1.32-3.57) K/mm3 [place] # (Auto) (0.30-0.82) K/mm3 Eos # (Auto) (0.04-0.54) K/mm3 Baso # (Auto) (0.01-0.08) K/mm3 Sodium 136 (136-145) mEq/L Potassium 4.9 (3.5-5.1) mEq/L Chloride 101 (98-107) mEq/L Carbon Dioxide 23 (21-32) mEq/L Anion Gap 16.9 H (5-15) BUN 54 H (7-18) mg/dL Creatinine 2.1 H (0.7-1.3) mg/dL Est Cr Clr Drug Dosing 31.33 mL/min Estimated GFR (MDRD) 31 (>60) mL/min BUN/Creatinine Ratio 25.7 H (14-18) Glucose 123 H (70-99) mg/dL POC Glucose 118 H 104 H (70-99) mg/dL Calcium 8.6 (8.5-10.1) mg/dL Magnesium 1.9 (1.8-2.4) mg/dL Total Bilirubin 0.9 (0.2-1.0) mg/dL AST 22 (15-37) U/L ALT 33 (16-63) U/L Alkaline Phosphatase 87 (46-116) U/L NT-Pro-B Natriuret Pep (0-125) pg/mL Total Protein 6.6 (6.4-8.2) g/dl Albumin 3.4 (3.4-5.0) g/dl Globulin 3.2 gm/dL Albumin/Globulin Ratio 1.1 (1-2) Med Orders - Current: Current Medications Acetaminophen (Acetaminophen 325 Mg Tab) 650 mg PO Q4H PRN PRN Reason: Pain (Mild 1-3)/fever Last Admin: 03/02/21 04:56 Dose: 650 mg Documented by: Hydrocodone Bitart/Acetaminophen (Acetaminophen/Hydrocodone 325-5 Mg Tab) 1 tab PO Q4H PRN PRN Reason: Pain (moderate 4-6) Albuterol/Ipratropium (Albuterol/Ipratropium 3.0-0.5 Mg/3 Ml Neb Soln) 3 ml NEB Q6HRRT [facility] Last Admin: 03/02/21 09:23 Dose: 3 ml Documented by: Clopidogrel Bisulfate (Clopidogrel 75 Mg Tab) 75 mg PO DAILY [facility] Last Admin: 03/02/21 09:36 Dose: 75 mg Documented by: Enoxaparin Sodium (Enoxaparin 40 Mg/0.4 Ml Syringe) 40 mg SUBCUT DAILY [facility] Last Admin: 03/02/21 09:37 Dose: 40 mg Documented by: Sodium Chloride (Normal Saline) 1,000 mls @ 75 mls/hr IV ASDIRECTED [facility] Last Admin: 03/02/21 06:44 Dose: 75 mls/hr Documented by: Insulin Human Lispro (Insulin Lispro 100 Unit/Ml 3 Ml Kwikpen) 0 unit SUBCUT QIDACANDBED [facility]; Protocol Last Admin: 03/02/21 12:10 Dose: Not Given Documented by: Metoprolol Succinate (Metoprolol Succinate 50 Mg Tab.Er) 200 mg PO DAILY [facility] Last Admin: 03/02/21 09:36 Dose: 200 mg Documented by: Nortriptyline HCl (Nortriptyline 25 Mg Cap) 50 mg PO BEDTIME [facility] Last Admin: 03/01/21 20:37 Dose: 50 mg Documented by: Ondansetron HCl (Ondansetron 4 Mg/2 Ml Sdv) 4 mg IV Q6H PRN PRN Reason: Nausea/Vomiting Paroxetine HCl (Paroxetine 20 Mg Tab) 20 mg PO DAILY [facility] Last Admin: 03/02/21 09:36 Dose: 20 mg Documented by: Rosuvastatin Calcium (Rosuvastatin 10 Mg Tab) 40 mg PO BEDTIME [facility] Spironolactone (Spironolactone 25 Mg Tab) 25 mg PO DAILY [facility] Last Admin: 03/02/21 09:36 Dose: 25 mg Documented by: Discontinued Medications Rosuvastatin Calcium (Rosuvastatin 10 Mg Tab) 20 mg PO BEDTIME [facility] Last Admin: 03/01/21 20:37 Dose: 20 mg Documented by: - Exam Quality Assessment: No: Supplemental Oxygen General: Alert HEENT: Pupils Equal, Mucous Membr. Moist/[place] Neck: Supple Lungs: Normal Respiratory Effort, Wheezing Cardiovascular: Regular Rate, Regular Rhythm GI/Abdominal Exam: Normal Bowel Sounds, Soft, Non-Tender, No Distention Extremities: Normal Inspection, Normal Range of Motion, Non-Tender, No Pedal Edema Skin: Warm, Dry, Intact Neurological: No New Focal Deficit - Patient Data Lab Results Last 24 hrs: Laboratory Results - last 24 hr 03/01/21 03/01/21 03/02/21 Range/Units 18:19 21:05 05:40 WBC 8.28 (4.23-9.07) K/mm3 RBC 3.82 L (4.63-6.08) M/mm3 Hgb 12.0 L (13.7-17.5) gm/dl Hct 36.8 L (40.1-51.0) % MCV 96.3 H (79.0-92.2) fl MCH 31.4 (25.7-32.2) pg MCHC 32.6 (32.2-35.5) g/dl RDW Std Deviation 51.4 H (35.1-43.9) fL Plt Count 294 (163-337) K/mm3 MPV 8.9 L (9.4-12.3) fl Neut % (Auto) 77.3 H (34.0-67.9) % Lymph % (Auto) 14.3 L (21.8-53.1) % [place] % (Auto) 7.0 (5.3-12.2) % Eos % (Auto) 0.8 (0.8-7.0) Baso % (Auto) 0.4 (0.1-1.2) % Neut # (Auto) 6.40 H (1.78-5.38) K/mm3 Lymph # (Auto) 1.18 L (1.32-3.57) K/mm3 [place] # (Auto) 0.58 (0.30-0.82) K/mm3 Eos # (Auto) 0.07 (0.04-0.54) K/mm3 Baso # (Auto) 0.03 (0.01-0.08) K/mm3 Sodium (136-145) mEq/L Potassium (3.5-5.1) mEq/L Chloride (98-107) mEq/L Carbon Dioxide (21-32) mEq/L Anion Gap (5-15) BUN (7-18) mg/dL Creatinine (0.7-1.3) mg/dL Est Cr Clr Drug Dosing mL/min Estimated GFR (MDRD) (>60) mL/min BUN/Creatinine Ratio (14-18) Glucose (70-99) mg/dL POC Glucose 134 H (70-99) mg/dL Calcium (8.5-10.1) mg/dL Magnesium (1.8-2.4) mg/dL Total Bilirubin (0.2-1.0) mg/dL AST (15-37) U/L ALT (16-63) U/L Alkaline Phosphatase (46-116) U/L NT-Pro-B Natriuret Pep 08273 H (0-125) pg/mL Total Protein (6.4-8.2) g/dl Albumin (3.4-5.0) g/dl Globulin gm/dL Albumin/Globulin Ratio (1-2) 03/02/21 03/02/21 03/02/21 Range/Units 05:40 06:28 11:25 WBC (4.23-9.07) K/mm3 RBC (4.63-6.08) M/mm3 Hgb (13.7-17.5) gm/dl Hct (40.1-51.0) % MCV (79.0-92.2) fl MCH (25.7-32.2) pg MCHC (32.2-35.5) g/dl RDW Std Deviation (35.1-43.9) fL Plt Count (163-337) K/mm3 MPV (9.4-12.3) fl Neut % (Auto) (34.0-67.9) % Lymph % (Auto) (21.8-53.1) % [place] % (Auto) (5.3-12.2) % Eos % (Auto) (0.8-7.0) Baso % (Auto) (0.1-1.2) % Neut # (Auto) (1.78-5.38) K/mm3 Lymph # (Auto) (1.32-3.57) K/mm3 [place] # (Auto) (0.30-0.82) K/mm3 Eos # (Auto) (0.04-0.54) K/mm3 Baso # (Auto) (0.01-0.08) K/mm3 Sodium 136 (136-145) mEq/L Potassium 4.9 (3.5-5.1) mEq/L Chloride 101 (98-107) mEq/L Carbon Dioxide 23 (21-32) mEq/L Anion Gap 16.9 H (5-15) BUN 54 H (7-18) mg/dL Creatinine 2.1 H (0.7-1.3) mg/dL Est Cr Clr Drug Dosing 31.33 mL/min Estimated GFR (MDRD) 31 (>60) mL/min BUN/Creatinine Ratio 25.7 H (14-18) Glucose 123 H (70-99) mg/dL POC Glucose 118 H 104 H (70-99) mg/dL Calcium 8.6 (8.5-10.1) mg/dL Magnesium 1.9 (1.8-2.4) mg/dL Total Bilirubin 0.9 (0.2-1.0) mg/dL AST 22 (15-37) U/L ALT 33 (16-63) U/L Alkaline Phosphatase 87 (46-116) U/L NT-Pro-B Natriuret Pep (0-125) pg/mL Total Protein 6.6 (6.4-8.2) g/dl Albumin 3.4 (3.4-5.0) g/dl Globulin 3.2 gm/dL Albumin/Globulin Ratio 1.1 (1-2) Result Diagrams: 03/02/21 05:40 03/02/21 05:40 Sepsis Event Note - Evaluation Sepsis Screening Result: No Definite Risk - Focused Exam Vital Signs: Vital Signs Temp Pulse Resp BP Pulse Ox Pulse Ox 03/02/21 11:58 96.6 F L 76 19 147/91 H 91 L 03/02/21 09:36 76 146/90 H 03/02/21 09:25 99 03/02/21 07:26 96.6 F L 76 20 146/90 H 100 03/02/21 03:46 96.8 F L 70 18 120/75 98 03/02/21 02:50 91 L - Problem List & Annotations (1) Leg pain, bilateral SNOMED Code(s): 62906753, 523888431 Code(s): M79.604 - PAIN IN RIGHT LEG; M79.605 - PAIN IN LEFT LEG Status: Acute Current Visit: Yes (2) Acute renal insufficiency SNOMED Code(s): 192819311 Code(s): N28.9 - DISORDER OF KIDNEY AND URETER, UNSPECIFIED Status: Acute Current Visit: Yes (3) Prerenal acute renal failure SNOMED Code(s): 298121332531822 Code(s): N17.9 - ACUTE KIDNEY FAILURE, UNSPECIFIED Status: Acute Current Visit: Yes (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 SNOMED Code(s): 47671053, 008822115 Code(s): I50.40 - UNSP COMBINED SYSTOLIC AND DIASTOLIC (CONGESTIVE) HRT FAIL Status: Acute Priority: High Current Visit: No Qualifiers: Heart failure chronicity: acute Qualified Code(s): I50.41 - Acute combined systolic (congestive) and diastolic (congestive) heart failure (5) Elevated brain natriuretic peptide (BNP) level SNOMED Code(s): 431536921, 637697949 Code(s): R79.89 - OTHER SPECIFIED ABNORMAL FINDINGS OF BLOOD CHEMISTRY Status: Acute Priority: High Current Visit: No (6) Generalized weakness SNOMED Code(s): 74876908 Code(s): R53.1 - WEAKNESS Status: Acute Priority: High Current Visit: No (7) HTN (hypertension) SNOMED Code(s): 46242944 Code(s): I10 - ESSENTIAL (PRIMARY) HYPERTENSION Status: Chronic Priority: Medium Current Visit: No Qualifiers: Hypertension type: unspecified Qualified Code(s): I10 - Essential (primary) hypertension (8) History of coronary artery stent placement SNOMED Code(s): 567107378, 328125355 Code(s): Z95.5 - PRESENCE OF CORONARY ANGIOPLASTY IMPLANT AND GRAFT Status: Chronic Priority: Low Current Visit: No - Problem List Review Problem List Initiated/Reviewed/Updated: Yes - My Orders Last 24 Hours: My Active Orders 03/01/21 Dinner Consistent Carbohydrate Diet [DIET] 03/01/21 17:16 Oxygen Therapy [RC] PRN Up With Assistance [RC] BID VTE/DVT Education [RC] PER UNIT ROUTINE Vital Signs [RC] Q4HR PT Evaluation and Treatment [CONS] Routine Acetaminophen [TylenoL] 650 mg PO Q4H PRN Ondansetron [Zofran] 4 mg IV Q6H PRN Resuscitation Status Routine 03/01/21 18:27 Weight bearing status [OM.PC] Routine 03/01/21 19:51 Blood Glucose Check, Bedside [RC] WITHMEALSANDBED 03/01/21 19:54 Acetaminophen/HYDROcodone [[place] 325-5 MG] 1 tab PO Q4H PRN 03/01/21 20:25 RT Aerosol Therapy [RC] ASDIRECTED 03/01/21 20:27 Overnight Pulse Oximetry [RC] Click to Edit 03/01/21 21:00 Albuterol/Ipratropium [DuoNeb 3.0-0.5 MG/3 ML] 3 ml NEB Q6HRRT Nortriptyline 50 mg PO BEDTIME 03/01/21 22:00 Insulin Lispro [HumaLOG] See Protocol SUBCUT QIDACANDBED 03/02/21 09:00 Clopidogrel [Plavix] 75 mg PO DAILY Enoxaparin [Lovenox] 40 mg SUBCUT DAILY Metoprolol Succinate [Toprol XL] 200 mg PO DAILY PARoxetine [Paxil] 20 mg PO DAILY Spironolactone [Aldactone] 25 mg PO DAILY 03/02/21 21:00 Rosuvastatin [Crestor] 40 mg PO BEDTIME - Plan Plan:: 75-year-old male with history of diabetes, peripheral vascular disease, mixed congestive heart failure presents to the emergency department with lower extremity pain. Lower extremity pain Peripheral vascular disease post lower extremity vascular stenting Coronary artery disease * Patient presents with worsening pain in his lower extremities. * Initial concern for CVA ruled out with MRI * Currently patient states he is having no pain. Pain is worse with ambulation. 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 Pseudonormal, grade 2, pattern of LV diastolic filling. Trace aortic and mitral valve regurgitation. * proBNP today is 27,672. This is likely spuriously high because of his renal failure. Patient has only minimal lower extremity edema and chest x-ray shows no significant vascular congestion. Lung sounds are mainly significant for wheezing. Diabetes * Hemoglobin A1c 6.3 * Home medications include Metformin Acute on chronic renal insufficiency/prerenal * BUN 60 and creatinine 2.3 * When patient was discharged from here in November creatinine was 1.3 * Estimated GFR 28 today and 54 on December 29 * Currently on torsemide 40 mg daily and spironolactone 25 mg daily Tobaccoism/COPD * Lungs wheezy throughout Review of his previous hospitalization shows he was discharged on Entresto which is not on his home meds at this time. He was also sent home on 40 mg of Lasix and 25 mg of spironolactone. This apparently was changed to torsemide 40 mg. Patient was also started on valsartan as an outpatient instead of Entresto. 03/02/2021 75-year-old male with history of diabetes, peripheral vascular disease, heart failure with reduced ejection fraction and diastolic failure, recent fracture of the right ankle in a walking boot and multiple lower extremity wounds. Admitted with worsening lower extremity pain, prerenal acute renal failure, and heart failure. Creatinine decreased from 2.3-2.1 and BUN decreased from 60-54. Estimated GFR is slightly improved from 28-31. Blood sugars well controlled in the low to mid one hundreds. He has been on normal saline 75 mL an hour. He does have what appears to be sleep apnea, but he will not keep the oximetry on his finger overnight. He did have a significant drop in oxygen saturations when he took a nap during the day. We will try to use CPAP overnight. This should help both his heart failure and his sleep apnea. Continue trying to give him duo nebs. Recheck CBC, CMP, mag in the morning. Plan * Admit to medical floor on telemetry * PT * Stop IV fluid * Close monitoring of respiratory status * Nicotine patch 21 mcg daily * Continue to hold torsemide and continue spironolactone * Hold valsartan secondary to renal failure * Sliding scale insulin and bedside glucose monitoring 4 times daily * [place] for foot pain and continue nortriptyline 50 mg daily * VTE prophylaxis with Lovenox * CODE STATUS: Full code * manager field services informed me that family does not think she can take him home. Patient will be kept over the weekend for placement.
[2021-03-02] MEDS: Nicotine 21 MG/24 Hr Patch TRDERM SCH (18:28)
[2021-03-02] MEDS: Rosuvastatin 10 MG Tab PO SCH (21:52)
[2021-03-02] MEDS: Nortriptyline 25 MG Cap PO SCH (21:52)
[2021-03-03] MEDS: Albuterol/Ipratropium 3.0-0.5 MG/3 ML Neb Soln NEB SCH ×4 (02:15→20:24)
[2021-03-03] MEDS: Insulin Lispro 100 Unit/ML 3 ML KwikPen SUBCUT SCH ×4 (05:59→22:17)
[2021-03-03] MEDS: Metoprolol Succinate 50 MG Tab.ER PO SCH (08:05)
[2021-03-03] MEDS: Spironolactone 25 MG Tab PO SCH (08:05)
[2021-03-03] MEDS: Clopidogrel 75 MG Tab PO SCH (08:05)
[2021-03-03] MEDS: PARoxetine 20 MG Tab PO SCH (08:05)
[2021-03-03] MEDS: Nicotine 21 MG/24 Hr Patch TRDERM SCH (08:06)
[2021-03-03] MEDS: Enoxaparin 40 MG/0.4 ML Syringe SUBCUT SCH (08:06)
[2021-03-03] MEDS ORDERED: Furosemide 40 MG/4 ML VIAL IVPUSH SCH (10:00)
--- NOTE | 2021-03-03 11:52 | PCM.PN ---
- General Info Date of Service: 03/03/21 Admission Dx/Problem (Free Text): Admission Diagnosis/Problem Admission Diagnosis/Problem Prerenal renal failure Subjective Update: Patient continues to say he is feeling well. He denies any pain. Denies any shortness of breath, fever, chills. Functional Status: Reports: Pain Controlled - Review of Systems General: Reports: No Symptoms HEENT: Reports: No Symptoms Pulmonary: Reports: No Symptoms Cardiovascular: Reports: No Symptoms Gastrointestinal: Reports: No Symptoms Musculoskeletal: Reports: No Symptoms Neurological: Reports: No Symptoms Psychiatric: Reports: No Symptoms - Patient Data Vitals - Most Recent: Last Vital Signs Temp 97.2 F 03/03/21 07:16 Pulse 77 03/03/21 08:05 Resp 20 03/03/21 07:16 BP 138/87 03/03/21 08:05 Pulse Ox 99 03/03/21 07:16 Weight - Most Recent: 190 lb 9.6 oz I&O - Last 24 Hours: Intake & Output 03/02/21 03/03/21 03/03/21 22:59 06:59 14:59 Intake Total 1195 600 Output Total 750 Balance 1195 -150 Lab Results Last 24 Hours: Laboratory Results - last 24 hr 03/02/21 03/02/21 03/03/21 Range/Units 17:02 20:43 04:45 WBC 9.64 H (4.23-9.07) K/mm3 RBC 3.78 L (4.63-6.08) M/mm3 Hgb 11.8 L (13.7-17.5) gm/dl Hct 36.6 L (40.1-51.0) % MCV 96.8 H (79.0-92.2) fl MCH 31.2 (25.7-32.2) pg MCHC 32.2 (32.2-35.5) g/dl RDW Std Deviation 52.1 H (35.1-43.9) fL Plt Count 307 (163-337) K/mm3 MPV 8.6 L (9.4-12.3) fl Neut % (Auto) 78.9 H (34.0-67.9) % Lymph % (Auto) 12.3 L (21.8-53.1) % [place] % (Auto) 7.6 (5.3-12.2) % Eos % (Auto) 0.6 L (0.8-7.0) Baso % (Auto) 0.3 (0.1-1.2) % Neut # (Auto) 7.60 H (1.78-5.38) K/mm3 Lymph # (Auto) 1.19 L (1.32-3.57) K/mm3 [place] # (Auto) 0.73 (0.30-0.82) K/mm3 Eos # (Auto) 0.06 (0.04-0.54) K/mm3 Baso # (Auto) 0.03 (0.01-0.08) K/mm3 Sodium (136-145) mEq/L Potassium (3.5-5.1) mEq/L Chloride (98-107) mEq/L Carbon Dioxide (21-32) mEq/L Anion Gap (5-15) BUN (7-18) mg/dL Creatinine (0.7-1.3) mg/dL Est Cr Clr Drug Dosing mL/min Estimated GFR (MDRD) (>60) mL/min BUN/Creatinine Ratio (14-18) Glucose (70-99) mg/dL POC Glucose 147 H 115 H (70-99) mg/dL Calcium (8.5-10.1) mg/dL Phosphorus (2.6-4.7) mg/dL Magnesium (1.8-2.4) mg/dL Total Bilirubin (0.2-1.0) mg/dL AST (15-37) U/L ALT (16-63) U/L Alkaline Phosphatase (46-116) U/L C-Reactive Protein (<1.0) mg/dL Total Protein (6.4-8.2) g/dl Albumin (3.4-5.0) g/dl Globulin gm/dL Albumin/Globulin Ratio (1-2) 03/03/21 03/03/21 03/03/21 Range/Units 04:45 05:56 11:12 WBC (4.23-9.07) K/mm3 RBC (4.63-6.08) M/mm3 Hgb (13.7-17.5) gm/dl Hct (40.1-51.0) % MCV (79.0-92.2) fl MCH (25.7-32.2) pg MCHC (32.2-35.5) g/dl RDW Std Deviation (35.1-43.9) fL Plt Count (163-337) K/mm3 MPV (9.4-12.3) fl Neut % (Auto) (34.0-67.9) % Lymph % (Auto) (21.8-53.1) % [place] % (Auto) (5.3-12.2) % Eos % (Auto) (0.8-7.0) Baso % (Auto) (0.1-1.2) % Neut # (Auto) (1.78-5.38) K/mm3 Lymph # (Auto) (1.32-3.57) K/mm3 [place] # (Auto) (0.30-0.82) K/mm3 Eos # (Auto) (0.04-0.54) K/mm3 Baso # (Auto) (0.01-0.08) K/mm3 Sodium 139 (136-145) mEq/L Potassium 4.8 (3.5-5.1) mEq/L Chloride 105 (98-107) mEq/L Carbon Dioxide 24 (21-32) mEq/L Anion Gap 14.8 (5-15) BUN 46 H (7-18) mg/dL Creatinine 2.0 H (0.7-1.3) mg/dL Est Cr Clr Drug Dosing 32.90 mL/min Estimated GFR (MDRD) 33 (>60) mL/min BUN/Creatinine Ratio 23.0 H (14-18) Glucose 137 H (70-99) mg/dL POC Glucose 122 H 166 H (70-99) mg/dL Calcium 8.6 (8.5-10.1) mg/dL Phosphorus 4.3 (2.6-4.7) mg/dL Magnesium 2.1 (1.8-2.4) mg/dL Total Bilirubin 0.9 (0.2-1.0) mg/dL AST 24 (15-37) U/L ALT 30 (16-63) U/L Alkaline Phosphatase 83 (46-116) U/L C-Reactive Protein < 0.2 (<1.0) mg/dL Total Protein 6.4 (6.4-8.2) g/dl Albumin 3.3 L (3.4-5.0) g/dl Globulin 3.1 gm/dL Albumin/Globulin Ratio 1.1 (1-2) Med Orders - Current: Current Medications Acetaminophen (Acetaminophen 325 Mg Tab) 650 mg PO Q4H PRN PRN Reason: Pain (Mild 1-3)/fever Last Admin: 03/02/21 04:56 Dose: 650 mg Documented by: Hydrocodone Bitart/Acetaminophen (Acetaminophen/Hydrocodone 325-5 Mg Tab) 1 tab PO Q4H PRN PRN Reason: Pain (moderate 4-6) Albuterol/Ipratropium (Albuterol/Ipratropium 3.0-0.5 Mg/3 Ml Neb Soln) 3 ml NEB Q6HRRT [facility] Last Admin: 03/03/21 02:15 Dose: 3 ml Documented by: Clopidogrel Bisulfate (Clopidogrel 75 Mg Tab) 75 mg PO DAILY [facility] Last Admin: 03/03/21 08:05 Dose: 75 mg Documented by: Enoxaparin Sodium (Enoxaparin 40 Mg/0.4 Ml Syringe) 40 mg SUBCUT DAILY [facility] Last Admin: 03/03/21 08:06 Dose: 40 mg Documented by: Furosemide (Furosemide 40 Mg/4 Ml Vial) 40 mg IVPUSH DAILY [facility] Last Admin: 03/03/21 11:44 Dose: 40 mg Documented by: Insulin Human Lispro (Insulin Lispro 100 Unit/Ml 3 Ml Kwikpen) 0 unit SUBCUT QIDACANDBED [facility]; Protocol Last Admin: 03/03/21 11:43 Dose: 1 unit Documented by: Metoprolol Succinate (Metoprolol Succinate 50 Mg Tab.Er) 200 mg PO DAILY [facility] Last Admin: 03/03/21 08:05 Dose: 200 mg Documented by: Miscellaneous Information (Remove Patch) 0 ea TRDERM DAILY [facility] Last Admin: 03/03/21 08:12 Dose: 21 ea Documented by: Nicotine (Nicotine 21 Mg/24 Hr Patch) 21 mg TRDERM DAILY [facility] Last Admin: 03/03/21 08:06 Dose: 21 mg Documented by: Nortriptyline HCl (Nortriptyline 25 Mg Cap) 50 mg PO BEDTIME [facility] Last Admin: 03/02/21 21:52 Dose: 50 mg Documented by: Ondansetron HCl (Ondansetron 4 Mg/2 Ml Sdv) 4 mg IV Q6H PRN PRN Reason: Nausea/Vomiting Paroxetine HCl (Paroxetine 20 Mg Tab) 20 mg PO DAILY [facility] Last Admin: 03/03/21 08:05 Dose: 20 mg Documented by: Rosuvastatin Calcium (Rosuvastatin 10 Mg Tab) 40 mg PO BEDTIME [facility] Last Admin: 03/02/21 21:52 Dose: 40 mg Documented by: Spironolactone (Spironolactone 25 Mg Tab) 25 mg PO DAILY [facility] Last Admin: 03/03/21 08:05 Dose: 25 mg Documented by: Discontinued Medications Sodium Chloride (Normal Saline) 1,000 mls @ 75 mls/hr IV ASDIRECTED [facility] Stop: 03/02/21 14:00 Last Admin: 03/02/21 06:44 Dose: 75 mls/hr Documented by: Rosuvastatin Calcium (Rosuvastatin 10 Mg Tab) 20 mg PO BEDTIME [facility] Last Admin: 03/01/21 20:37 Dose: 20 mg Documented by: - Exam Quality Assessment: No: Supplemental Oxygen General: Alert, Oriented HEENT: Pupils Equal, Mucous Membr. Moist/[place] Neck: Supple Lungs: Normal Respiratory Effort, Crackles (Minimal bibasilar), Wheezing Cardiovascular: Regular Rate, Regular Rhythm GI/Abdominal Exam: Normal Bowel Sounds, Soft, Non-Tender, No Distention Extremities: Normal Inspection, Normal Range of Motion, Non-Tender, No Pedal Edema, Normal Capillary Refill Skin: Warm, Dry, Intact Psy/Mental Status: Alert, Normal Affect, Normal Mood - Patient Data Lab Results Last 24 hrs: Laboratory Results - last 24 hr 03/02/21 03/02/21 03/03/21 Range/Units 17:02 20:43 04:45 WBC 9.64 H (4.23-9.07) K/mm3 RBC 3.78 L (4.63-6.08) M/mm3 Hgb 11.8 L (13.7-17.5) gm/dl Hct 36.6 L (40.1-51.0) % MCV 96.8 H (79.0-92.2) fl MCH 31.2 (25.7-32.2) pg MCHC 32.2 (32.2-35.5) g/dl RDW Std Deviation 52.1 H (35.1-43.9) fL Plt Count 307 (163-337) K/mm3 MPV 8.6 L (9.4-12.3) fl Neut % (Auto) 78.9 H (34.0-67.9) % Lymph % (Auto) 12.3 L (21.8-53.1) % [place] % (Auto) 7.6 (5.3-12.2) % Eos % (Auto) 0.6 L (0.8-7.0) Baso % (Auto) 0.3 (0.1-1.2) % Neut # (Auto) 7.60 H (1.78-5.38) K/mm3 Lymph # (Auto) 1.19 L (1.32-3.57) K/mm3 [place] # (Auto) 0.73 (0.30-0.82) K/mm3 Eos # (Auto) 0.06 (0.04-0.54) K/mm3 Baso # (Auto) 0.03 (0.01-0.08) K/mm3 Sodium (136-145) mEq/L Potassium (3.5-5.1) mEq/L Chloride (98-107) mEq/L Carbon Dioxide (21-32) mEq/L Anion Gap (5-15) BUN (7-18) mg/dL Creatinine (0.7-1.3) mg/dL Est Cr Clr Drug Dosing mL/min Estimated GFR (MDRD) (>60) mL/min BUN/Creatinine Ratio (14-18) Glucose (70-99) mg/dL POC Glucose 147 H 115 H (70-99) mg/dL Calcium (8.5-10.1) mg/dL Phosphorus (2.6-4.7) mg/dL Magnesium (1.8-2.4) mg/dL Total Bilirubin (0.2-1.0) mg/dL AST (15-37) U/L ALT (16-63) U/L Alkaline Phosphatase (46-116) U/L C-Reactive Protein (<1.0) mg/dL Total Protein (6.4-8.2) g/dl Albumin (3.4-5.0) g/dl Globulin gm/dL Albumin/Globulin Ratio (1-2) 03/03/21 03/03/21 03/03/21 Range/Units 04:45 05:56 11:12 WBC (4.23-9.07) K/mm3 RBC (4.63-6.08) M/mm3 Hgb (13.7-17.5) gm/dl Hct (40.1-51.0) % MCV (79.0-92.2) fl MCH (25.7-32.2) pg MCHC (32.2-35.5) g/dl RDW Std Deviation (35.1-43.9) fL Plt Count (163-337) K/mm3 MPV (9.4-12.3) fl Neut % (Auto) (34.0-67.9) % Lymph % (Auto) (21.8-53.1) % [place] % (Auto) (5.3-12.2) % Eos % (Auto) (0.8-7.0) Baso % (Auto) (0.1-1.2) % Neut # (Auto) (1.78-5.38) K/mm3 Lymph # (Auto) (1.32-3.57) K/mm3 [place] # (Auto) (0.30-0.82) K/mm3 Eos # (Auto) (0.04-0.54) K/mm3 Baso # (Auto) (0.01-0.08) K/mm3 Sodium 139 (136-145) mEq/L Potassium 4.8 (3.5-5.1) mEq/L Chloride 105 (98-107) mEq/L Carbon Dioxide 24 (21-32) mEq/L Anion Gap 14.8 (5-15) BUN 46 H (7-18) mg/dL Creatinine 2.0 H (0.7-1.3) mg/dL Est Cr Clr Drug Dosing 32.90 mL/min Estimated GFR (MDRD) 33 (>60) mL/min BUN/Creatinine Ratio 23.0 H (14-18) Glucose 137 H (70-99) mg/dL POC Glucose 122 H 166 H (70-99) mg/dL Calcium 8.6 (8.5-10.1) mg/dL Phosphorus 4.3 (2.6-4.7) mg/dL Magnesium 2.1 (1.8-2.4) mg/dL Total Bilirubin 0.9 (0.2-1.0) mg/dL AST 24 (15-37) U/L ALT 30 (16-63) U/L Alkaline Phosphatase 83 (46-116) U/L C-Reactive Protein < 0.2 (<1.0) mg/dL Total Protein 6.4 (6.4-8.2) g/dl Albumin 3.3 L (3.4-5.0) g/dl Globulin 3.1 gm/dL Albumin/Globulin Ratio 1.1 (1-2) Result Diagrams: 03/03/21 04:45 03/03/21 04:45 Sepsis Event Note - Evaluation Sepsis Screening Result: No Definite Risk - Focused Exam Vital Signs: Vital Signs Temp Pulse Pulse Resp BP Pulse Ox Pulse Ox 03/03/21 08:05 77 138/87 03/03/21 07:16 97.2 F 77 20 138/87 99 03/03/21 03:27 97.2 F 85 22 H 141/87 H 100 03/03/21 02:16 95 03/03/21 01:48 80 95 03/03/21 00:00 98 - Problem List & Annotations (1) Leg pain, bilateral SNOMED Code(s): 71141996, 582713861 Code(s): M79.604 - PAIN IN RIGHT LEG; M79.605 - PAIN IN LEFT LEG Status: Acute Current Visit: Yes (2) Acute renal insufficiency SNOMED Code(s): 022457837 Code(s): N28.9 - DISORDER OF KIDNEY AND URETER, UNSPECIFIED Status: Acute Current Visit: Yes (3) Prerenal acute renal failure SNOMED Code(s): 158916852068634 Code(s): N17.9 - ACUTE KIDNEY FAILURE, UNSPECIFIED Status: Acute Current Visit: Yes (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 SNOMED Code(s): 64875578, 232165415 Code(s): I50.40 - UNSP COMBINED SYSTOLIC AND DIASTOLIC (CONGESTIVE) HRT FAIL Status: Acute Priority: High Current Visit: No Qualifiers: Heart failure chronicity: acute Qualified Code(s): I50.41 - Acute combined systolic (congestive) and diastolic (congestive) heart failure (5) Elevated brain natriuretic peptide (BNP) level SNOMED Code(s): 909197666, 513287955 Code(s): R79.89 - OTHER SPECIFIED ABNORMAL FINDINGS OF BLOOD CHEMISTRY Status: Acute Priority: High Current Visit: No (6) Generalized weakness SNOMED Code(s): 18644930 Code(s): R53.1 - WEAKNESS Status: Acute Priority: High Current Visit: No (7) HTN (hypertension) SNOMED Code(s): 64316562 Code(s): I10 - ESSENTIAL (PRIMARY) HYPERTENSION Status: Chronic Priority: Medium Current Visit: No Qualifiers: Hypertension type: unspecified Qualified Code(s): I10 - Essential (primary) hypertension (8) History of coronary artery stent placement SNOMED Code(s): 496737094, 145015122 Code(s): Z95.5 - PRESENCE OF CORONARY ANGIOPLASTY IMPLANT AND GRAFT Status: Chronic Priority: Low Current Visit: No (9) Open wound, lower leg SNOMED Code(s): 801809996 Code(s): S81.809A - UNSPECIFIED OPEN WOUND, UNSPECIFIED LOWER LEG, INIT ENCNTR Status: Acute Current Visit: Yes - Problem List Review Problem List Initiated/Reviewed/Updated: Yes - My Orders Last 24 Hours: My Active Orders 03/02/21 15:49 PT Evaluation and Treatment [CONS] Routine 03/02/21 17:15 Nicotine [Habitrol] 21 mg TRDERM DAILY 03/02/21 21:00 Rosuvastatin [Crestor] 40 mg PO BEDTIME 03/03/21 09:00 Remove Patch 0 ea TRDERM DAILY 03/03/21 10:00 Furosemide [Lasix] 40 mg IVPUSH DAILY 03/04/21 05:11 C-REACTIVE PROTEIN [CHEM] AM CBC WITH AUTO DIFF [HEME] AM CMP [COMPREHENSIVE METABOLIC PN,CMP] [CHEM] AM MAGNESIUM [CHEM] AM 03/05/21 05:11 C-REACTIVE PROTEIN [CHEM] AM CBC WITH AUTO DIFF [HEME] AM CMP [COMPREHENSIVE METABOLIC PN,CMP] [CHEM] AM MAGNESIUM [CHEM] AM 03/06/21 05:11 C-REACTIVE PROTEIN [CHEM] AM CBC WITH AUTO DIFF [HEME] AM CMP [COMPREHENSIVE METABOLIC PN,CMP] [CHEM] AM MAGNESIUM [CHEM] AM - Plan Plan:: 75-year-old male with history of diabetes, peripheral vascular disease, mixed congestive heart failure presents to the emergency department with lower extremity pain. Lower extremity pain Peripheral vascular disease post lower extremity vascular stenting Coronary artery disease * Patient presents with worsening pain in his lower extremities. * Initial concern for CVA ruled out with MRI * Currently patient states he is having no pain. Pain is worse with ambulation. 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 Pseudonormal, grade 2, pattern of LV diastolic filling. Trace aortic and mitral valve regurgitation. * proBNP today is 27,672. This is likely spuriously high because of his renal failure. Patient has only minimal lower extremity edema and chest x-ray shows no significant vascular congestion. Lung sounds are mainly significant for wheezing. Diabetes * Hemoglobin A1c 6.3 * Home medications include Metformin Acute on chronic renal insufficiency/prerenal * BUN 60 and creatinine 2.3 * When patient was discharged from here in November creatinine was 1.3 * Estimated GFR 28 today and 54 on December 29 * Currently on torsemide 40 mg daily and spironolactone 25 mg daily Tobaccoism/COPD * Lungs wheezy throughout Review of his previous hospitalization shows he was discharged on Entresto which is not on his home meds at this time. He was also sent home on 40 mg of Lasix and 25 mg of spironolactone. This apparently was changed to torsemide 40 mg. Patient was also started on valsartan as an outpatient instead of Entresto. 03/02/2021 75-year-old male with history of diabetes, peripheral vascular disease, heart failure with reduced ejection fraction and diastolic failure, recent fracture of the right ankle in a walking boot and multiple lower extremity wounds. Admitted with worsening lower extremity pain, prerenal acute renal failure, and heart failure. Creatinine decreased from 2.3-2.1 and BUN decreased from 60-54. Estimated GFR is slightly improved from 28-31. Blood sugars well controlled in the low to mid one hundreds. He has been on normal saline 75 mL an hour. He does have what appears to be sleep apnea, but he will not keep the oximetry on his finger overnight. He did have a significant drop in oxygen saturations when he took a nap during the day. We will try to use CPAP overnight. This should help both his heart failure and his sleep apnea. Continue trying to give him duo nebs. Recheck CBC, CMP, mag in the morning. 03/03/2021 75-year-old male with acute on chronic renal insufficiency and heart failure with reduced ejection fraction and diastolic dysfunction continues to have slow, but consistent improvement in his renal function. Today his creatinine is down to 2.0 and BUN is 46. The still has a significant prerenal distribution. Yesterday I stopped his fluids because of increasing weight gain and swelling in his lower extremities. Today we will give him some Lasix 40 mg IV x1. We will follow his renal function very closely. Continue on DuoNeb for his COPD and sliding scale for his diabetes. Patient has multiple lower extremity excoriations and wounds that are being treated by physical therapy. At this time they recommend bacitracin ointment with nonadherent dressing. Patient will require placement at a skilled care facility secondary to him not being able to care for himself at home and his not able to care for him. Plan * Admit to medical floor on telemetry * PT * Lasix 40 mg IV daily * Close monitoring of respiratory status * Nicotine patch 21 mcg daily * Continue to hold torsemide * Continue spironolactone * Hold valsartan secondary to renal failure * Sliding scale insulin and bedside glucose monitoring 4 times daily * [place] for foot pain and continue nortriptyline 50 mg daily * Follow renal function closely * VTE prophylaxis with Lovenox * CODE STATUS: Full code * director construction services informed me that family does not think she can take him home. Patient will be kept over the weekend for placement. * Length of stay greater than 96 hours secondary to placement
[2021-03-03] MEDS: Acetaminophen 325 MG Tab PO PRN (19:36)
[2021-03-03] MEDS: Latanoprost 0.005% Ophth Soln 2.5 ML Bottle EYERT SCH (22:16)
[2021-03-03] MEDS: Rosuvastatin 10 MG Tab PO SCH (22:16)
[2021-03-03] MEDS: Nortriptyline 25 MG Cap PO SCH (22:37)
[2021-03-04] MEDS: Acetaminophen 325 MG Tab PO PRN ×2 (01:19→21:13)
[2021-03-04] MEDS: Albuterol/Ipratropium 3.0-0.5 MG/3 ML Neb Soln NEB SCH ×4 (02:22→20:58)
[2021-03-04] MEDS: Insulin Lispro 100 Unit/ML 3 ML KwikPen SUBCUT SCH ×4 (07:55→21:14)
[2021-03-04] MEDS ORDERED: Furosemide 40 MG Tab PO SCH (09:00)
[2021-03-04] MEDS: Spironolactone 25 MG Tab PO SCH (09:07)
[2021-03-04] MEDS: Enoxaparin 40 MG/0.4 ML Syringe SUBCUT SCH (09:07)
[2021-03-04] MEDS: PARoxetine 20 MG Tab PO SCH (09:08)
[2021-03-04] MEDS: Clopidogrel 75 MG Tab PO SCH (09:08)
[2021-03-04] MEDS: Metoprolol Succinate 50 MG Tab.ER PO SCH (09:11)
[2021-03-04] MEDS: Nicotine 21 MG/24 Hr Patch TRDERM SCH (09:12)
--- NOTE | 2021-03-04 09:17 | PCM.PN ---
- General Info Date of Service: 03/04/21 Admission Dx/Problem (Free Text): Admission Diagnosis/Problem Admission Diagnosis/Problem Prerenal renal failure Subjective Update: Patient continues to say he is feeling well. He denies any pain. Denies any shortness of breath, fever, chills. - Patient Data Vitals - Most Recent: Last Vital Signs Temp 98.2 F 03/03/21 23:35 Pulse 80 03/03/21 23:35 Resp 20 03/03/21 23:35 BP 123/73 03/03/21 23:35 Pulse Ox 97 03/04/21 08:34 Weight - Most Recent: 188 lb 8 oz I&O - Last 24 Hours: Intake & Output 03/03/21 03/04/21 03/04/21 22:59 06:59 14:59 Intake Total 1420 600 Output Total 1000 550 Balance 420 50 Lab Results Last 24 Hours: Laboratory Results - last 24 hr 03/03/21 03/03/21 03/03/21 Range/Units 11:12 17:08 22:09 WBC (4.23-9.07) K/mm3 RBC (4.63-6.08) M/mm3 Hgb (13.7-17.5) gm/dl Hct (40.1-51.0) % MCV (79.0-92.2) fl MCH (25.7-32.2) pg MCHC (32.2-35.5) g/dl RDW Std Deviation (35.1-43.9) fL Plt Count (163-337) K/mm3 MPV (9.4-12.3) fl Neut % (Auto) (34.0-67.9) % Lymph % (Auto) (21.8-53.1) % [place] % (Auto) (5.3-12.2) % Eos % (Auto) (0.8-7.0) Baso % (Auto) (0.1-1.2) % Neut # (Auto) (1.78-5.38) K/mm3 Lymph # (Auto) (1.32-3.57) K/mm3 [place] # (Auto) (0.30-0.82) K/mm3 Eos # (Auto) (0.04-0.54) K/mm3 Baso # (Auto) (0.01-0.08) K/mm3 Sodium (136-145) mEq/L Potassium (3.5-5.1) mEq/L Chloride (98-107) mEq/L Carbon Dioxide (21-32) mEq/L Anion Gap (5-15) BUN (7-18) mg/dL Creatinine (0.7-1.3) mg/dL Est Cr Clr Drug Dosing mL/min Estimated GFR (MDRD) (>60) mL/min BUN/Creatinine Ratio (14-18) Glucose (70-99) mg/dL POC Glucose 166 H 145 H 119 H (70-99) mg/dL Calcium (8.5-10.1) mg/dL Magnesium (1.8-2.4) mg/dL Total Bilirubin (0.2-1.0) mg/dL AST (15-37) U/L ALT (16-63) U/L Alkaline Phosphatase (46-116) U/L C-Reactive Protein (<1.0) mg/dL Total Protein (6.4-8.2) g/dl Albumin (3.4-5.0) g/dl Globulin gm/dL Albumin/Globulin Ratio (1-2) 03/04/21 03/04/21 03/04/21 Range/Units 04:28 04:28 06:54 WBC 9.15 H (4.23-9.07) K/mm3 RBC 3.56 L (4.63-6.08) M/mm3 Hgb 11.1 L (13.7-17.5) gm/dl Hct 34.6 L (40.1-51.0) % MCV 97.2 H (79.0-92.2) fl MCH 31.2 (25.7-32.2) pg MCHC 32.1 L (32.2-35.5) g/dl RDW Std Deviation 51.4 H (35.1-43.9) fL Plt Count 291 (163-337) K/mm3 MPV 9.0 L (9.4-12.3) fl Neut % (Auto) 76.8 H (34.0-67.9) % Lymph % (Auto) 14.1 L (21.8-53.1) % [place] % (Auto) 7.7 (5.3-12.2) % Eos % (Auto) 0.9 (0.8-7.0) Baso % (Auto) 0.2 (0.1-1.2) % Neut # (Auto) 7.03 H (1.78-5.38) K/mm3 Lymph # (Auto) 1.29 L (1.32-3.57) K/mm3 [place] # (Auto) 0.70 (0.30-0.82) K/mm3 Eos # (Auto) 0.08 (0.04-0.54) K/mm3 Baso # (Auto) 0.02 (0.01-0.08) K/mm3 Sodium 137 (136-145) mEq/L Potassium 4.6 (3.5-5.1) mEq/L Chloride 104 (98-107) mEq/L Carbon Dioxide 21 (21-32) mEq/L Anion Gap 16.6 H (5-15) BUN 44 H (7-18) mg/dL Creatinine 2.0 H (0.7-1.3) mg/dL Est Cr Clr Drug Dosing 32.90 mL/min Estimated GFR (MDRD) 33 (>60) mL/min BUN/Creatinine Ratio 22.0 H (14-18) Glucose 127 H (70-99) mg/dL POC Glucose 119 H (70-99) mg/dL Calcium 8.6 (8.5-10.1) mg/dL Magnesium 2.1 (1.8-2.4) mg/dL Total Bilirubin 0.9 (0.2-1.0) mg/dL AST 30 (15-37) U/L ALT 38 (16-63) U/L Alkaline Phosphatase 89 (46-116) U/L C-Reactive Protein < 0.2 (<1.0) mg/dL Total Protein 6.4 (6.4-8.2) g/dl Albumin 3.3 L (3.4-5.0) g/dl Globulin 3.1 gm/dL Albumin/Globulin Ratio 1.1 (1-2) Med Orders - Current: Current Medications Acetaminophen (Acetaminophen 325 Mg Tab) 650 mg PO Q4H PRN PRN Reason: Pain (Mild 1-3)/fever Last Admin: 03/04/21 01:19 Dose: 650 mg Documented by: Hydrocodone Bitart/Acetaminophen (Acetaminophen/Hydrocodone 325-5 Mg Tab) 1 tab PO Q4H PRN PRN Reason: Pain (moderate 4-6) Albuterol/Ipratropium (Albuterol/Ipratropium 3.0-0.5 Mg/3 Ml Neb Soln) 3 ml NEB Q6HRRT [facility] Last Admin: 03/04/21 08:33 Dose: 3 ml Documented by: Clopidogrel Bisulfate (Clopidogrel 75 Mg Tab) 75 mg PO DAILY [facility] Last Admin: 03/03/21 08:05 Dose: 75 mg Documented by: Enoxaparin Sodium (Enoxaparin 40 Mg/0.4 Ml Syringe) 40 mg SUBCUT DAILY [facility] Last Admin: 03/03/21 08:06 Dose: 40 mg Documented by: Furosemide (Furosemide 40 Mg Tab) 40 mg PO DAILY [facility] Insulin Human Lispro (Insulin Lispro 100 Unit/Ml 3 Ml Kwikpen) 0 unit SUBCUT QIDACANDBED [facility]; Protocol Last Admin: 03/04/21 07:55 Dose: Not Given Documented by: Latanoprost (Latanoprost 0.005% Ophth Soln 2.5 Ml Bottle) 0 ml EYERT BEDTIME [facility] Last Admin: 03/03/21 22:16 Dose: 1 drop Documented by: Metoprolol Succinate (Metoprolol Succinate 50 Mg Tab.Er) 200 mg PO DAILY [facility] Last Admin: 03/03/21 08:05 Dose: 200 mg Documented by: Miscellaneous Information (Remove Patch) 0 ea TRDERM DAILY [facility] Last Admin: 03/03/21 08:12 Dose: 21 ea Documented by: Nicotine (Nicotine 21 Mg/24 Hr Patch) 21 mg TRDERM DAILY [facility] Last Admin: 03/03/21 08:06 Dose: 21 mg Documented by: Nortriptyline HCl (Nortriptyline 25 Mg Cap) 50 mg PO BEDTIME [facility] Last Admin: 03/03/21 22:37 Dose: Not Given Documented by: Ondansetron HCl (Ondansetron 4 Mg/2 Ml Sdv) 4 mg IV Q6H PRN PRN Reason: Nausea/Vomiting Paroxetine HCl (Paroxetine 20 Mg Tab) 20 mg PO DAILY [facility] Last Admin: 03/03/21 08:05 Dose: 20 mg Documented by: Rosuvastatin Calcium (Rosuvastatin 10 Mg Tab) 40 mg PO BEDTIME [facility] Last Admin: 03/03/21 22:16 Dose: 40 mg Documented by: Spironolactone (Spironolactone 25 Mg Tab) 25 mg PO DAILY [facility] Last Admin: 03/03/21 08:05 Dose: 25 mg Documented by: Discontinued Medications Furosemide (Furosemide 40 Mg/4 Ml Vial) 40 mg IVPUSH DAILY [facility] Last Admin: 03/03/21 11:44 Dose: 40 mg Documented by: Sodium Chloride (Normal Saline) 1,000 mls @ 75 mls/hr IV ASDIRECTED [facility] Stop: 03/02/21 14:00 Last Admin: 03/02/21 06:44 Dose: 75 mls/hr Documented by: Rosuvastatin Calcium (Rosuvastatin 10 Mg Tab) 20 mg PO BEDTIME [facility] Last Admin: 03/01/21 20:37 Dose: 20 mg Documented by: - Exam Quality Assessment: No: Supplemental Oxygen General: Alert HEENT: Pupils Equal, Mucous Membr. Moist/[place] Neck: Supple Lungs: Clear to Auscultation, Normal Respiratory Effort Cardiovascular: Regular Rate, Regular Rhythm GI/Abdominal Exam: Normal Bowel Sounds, Soft, Non-Tender, No Organomegaly, No Distention, No Abnormal Bruit, No Mass, Pelvis Stable Extremities: Normal Inspection, Normal Range of Motion, Non-Tender, No Pedal Edema, Normal Capillary Refill - Patient Data Lab Results Last 24 hrs: Laboratory Results - last 24 hr 03/03/21 03/03/21 03/03/21 Range/Units 11:12 17:08 22:09 WBC (4.23-9.07) K/mm3 RBC (4.63-6.08) M/mm3 Hgb (13.7-17.5) gm/dl Hct (40.1-51.0) % MCV (79.0-92.2) fl MCH (25.7-32.2) pg MCHC (32.2-35.5) g/dl RDW Std Deviation (35.1-43.9) fL Plt Count (163-337) K/mm3 MPV (9.4-12.3) fl Neut % (Auto) (34.0-67.9) % Lymph % (Auto) (21.8-53.1) % [place] % (Auto) (5.3-12.2) % Eos % (Auto) (0.8-7.0) Baso % (Auto) (0.1-1.2) % Neut # (Auto) (1.78-5.38) K/mm3 Lymph # (Auto) (1.32-3.57) K/mm3 [place] # (Auto) (0.30-0.82) K/mm3 Eos # (Auto) (0.04-0.54) K/mm3 Baso # (Auto) (0.01-0.08) K/mm3 Sodium (136-145) mEq/L Potassium (3.5-5.1) mEq/L Chloride (98-107) mEq/L Carbon Dioxide (21-32) mEq/L Anion Gap (5-15) BUN (7-18) mg/dL Creatinine (0.7-1.3) mg/dL Est Cr Clr Drug Dosing mL/min Estimated GFR (MDRD) (>60) mL/min BUN/Creatinine Ratio (14-18) Glucose (70-99) mg/dL POC Glucose 166 H 145 H 119 H (70-99) mg/dL Calcium (8.5-10.1) mg/dL Magnesium (1.8-2.4) mg/dL Total Bilirubin (0.2-1.0) mg/dL AST (15-37) U/L ALT (16-63) U/L Alkaline Phosphatase (46-116) U/L C-Reactive Protein (<1.0) mg/dL Total Protein (6.4-8.2) g/dl Albumin (3.4-5.0) g/dl Globulin gm/dL Albumin/Globulin Ratio (1-2) 03/04/21 03/04/21 03/04/21 Range/Units 04:28 04:28 06:54 WBC 9.15 H (4.23-9.07) K/mm3 RBC 3.56 L (4.63-6.08) M/mm3 Hgb 11.1 L (13.7-17.5) gm/dl Hct 34.6 L (40.1-51.0) % MCV 97.2 H (79.0-92.2) fl MCH 31.2 (25.7-32.2) pg MCHC 32.1 L (32.2-35.5) g/dl RDW Std Deviation 51.4 H (35.1-43.9) fL Plt Count 291 (163-337) K/mm3 MPV 9.0 L (9.4-12.3) fl Neut % (Auto) 76.8 H (34.0-67.9) % Lymph % (Auto) 14.1 L (21.8-53.1) % [place] % (Auto) 7.7 (5.3-12.2) % Eos % (Auto) 0.9 (0.8-7.0) Baso % (Auto) 0.2 (0.1-1.2) % Neut # (Auto) 7.03 H (1.78-5.38) K/mm3 Lymph # (Auto) 1.29 L (1.32-3.57) K/mm3 [place] # (Auto) 0.70 (0.30-0.82) K/mm3 Eos # (Auto) 0.08 (0.04-0.54) K/mm3 Baso # (Auto) 0.02 (0.01-0.08) K/mm3 Sodium 137 (136-145) mEq/L Potassium 4.6 (3.5-5.1) mEq/L Chloride 104 (98-107) mEq/L Carbon Dioxide 21 (21-32) mEq/L Anion Gap 16.6 H (5-15) BUN 44 H (7-18) mg/dL Creatinine 2.0 H (0.7-1.3) mg/dL Est Cr Clr Drug Dosing 32.90 mL/min Estimated GFR (MDRD) 33 (>60) mL/min BUN/Creatinine Ratio 22.0 H (14-18) Glucose 127 H (70-99) mg/dL POC Glucose 119 H (70-99) mg/dL Calcium 8.6 (8.5-10.1) mg/dL Magnesium 2.1 (1.8-2.4) mg/dL Total Bilirubin 0.9 (0.2-1.0) mg/dL AST 30 (15-37) U/L ALT 38 (16-63) U/L Alkaline Phosphatase 89 (46-116) U/L C-Reactive Protein < 0.2 (<1.0) mg/dL Total Protein 6.4 (6.4-8.2) g/dl Albumin 3.3 L (3.4-5.0) g/dl Globulin 3.1 gm/dL Albumin/Globulin Ratio 1.1 (1-2) Result Diagrams: 03/04/21 04:28 03/04/21 04:28 Sepsis Event Note - Evaluation Sepsis Screening Result: No Definite Risk - Focused Exam Vital Signs: Vital Signs Temp Pulse Resp BP Pulse Ox Pulse Ox 03/04/21 08:34 97 03/04/21 02:22 95 03/03/21 23:35 98.2 F 80 20 123/73 93 L - Problem List & Annotations (1) Leg pain, bilateral SNOMED Code(s): 26934861, 896364718 Code(s): M79.604 - PAIN IN RIGHT LEG; M79.605 - PAIN IN LEFT LEG Status: Acute Current Visit: Yes (2) Acute renal insufficiency SNOMED Code(s): 840115467 Code(s): N28.9 - DISORDER OF KIDNEY AND URETER, UNSPECIFIED Status: Acute Current Visit: Yes (3) Prerenal acute renal failure SNOMED Code(s): 543969728096859 Code(s): N17.9 - ACUTE KIDNEY FAILURE, UNSPECIFIED Status: Acute Current Visit: Yes (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 SNOMED Code(s): 29089454, 006340966 Code(s): I50.40 - UNSP COMBINED SYSTOLIC AND DIASTOLIC (CONGESTIVE) HRT FAIL Status: Acute Priority: High Current Visit: No Qualifiers: Heart failure chronicity: acute Qualified Code(s): I50.41 - Acute combined systolic (congestive) and diastolic (congestive) heart failure (5) Elevated brain natriuretic peptide (BNP) level SNOMED Code(s): 739269197, 215505588 Code(s): R79.89 - OTHER SPECIFIED ABNORMAL FINDINGS OF BLOOD CHEMISTRY Status: Acute Priority: High Current Visit: No (6) Generalized weakness SNOMED Code(s): 04170283 Code(s): R53.1 - WEAKNESS Status: Acute Priority: High Current Visit: No (7) HTN (hypertension) SNOMED Code(s): 46106091 Code(s): I10 - ESSENTIAL (PRIMARY) HYPERTENSION Status: Chronic Priority: Medium Current Visit: No Qualifiers: Hypertension type: unspecified Qualified Code(s): I10 - Essential (primary) hypertension (8) History of coronary artery stent placement SNOMED Code(s): 984816944, 555288696 Code(s): Z95.5 - PRESENCE OF CORONARY ANGIOPLASTY IMPLANT AND GRAFT Status: Chronic Priority: Low Current Visit: No (9) Open wound, lower leg SNOMED Code(s): 616125390 Code(s): S81.809A - UNSPECIFIED OPEN WOUND, UNSPECIFIED LOWER LEG, INIT ENCNTR Status: Acute Current Visit: Yes - Problem List Review Problem List Initiated/Reviewed/Updated: Yes - My Orders Last 24 Hours: My Active Orders 03/03/21 09:00 Remove Patch 0 ea TRDERM DAILY 03/03/21 21:00 Latanoprost [Xalatan 0.005% Ophth Soln] 0 ml EYERT BEDTIME 03/04/21 09:00 Furosemide [Lasix] 40 mg PO DAILY 03/05/21 05:11 C-REACTIVE PROTEIN [CHEM] AM CBC WITH AUTO DIFF [HEME] AM CMP [COMPREHENSIVE METABOLIC PN,CMP] [CHEM] AM MAGNESIUM [CHEM] AM 03/06/21 05:11 C-REACTIVE PROTEIN [CHEM] AM CBC WITH AUTO DIFF [HEME] AM CMP [COMPREHENSIVE METABOLIC PN,CMP] [CHEM] AM MAGNESIUM [CHEM] AM - Plan Plan:: 75-year-old male with history of diabetes, peripheral vascular disease, mixed congestive heart failure presents to the emergency department with lower extremity pain. Lower extremity pain Peripheral vascular disease post lower extremity vascular stenting Coronary artery disease * Patient presents with worsening pain in his lower extremities. * Initial concern for CVA ruled out with MRI * Currently patient states he is having no pain. Pain is worse with ambulation. 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 Pseudo normal, grade 2, pattern of LV diastolic filling. Trace aortic and mitral valve regurgitation. * proBNP today is 27,672. This is likely spuriously high because of his renal failure. Patient has only minimal lower extremity edema and chest x-ray shows no significant vascular congestion. Lung sounds are mainly significant for wheezing. Diabetes * Hemoglobin A1c 6.3 * Home medications include Metformin Acute on chronic renal insufficiency/prerenal * BUN 60 and creatinine 2.3 * When patient was discharged from here in November creatinine was 1.3 * Estimated GFR 28 today and 54 on December 29 * Currently on torsemide 40 mg daily and spironolactone 25 mg daily Tobaccoism/COPD * Lungs wheezy throughout Review of his previous hospitalization shows he was discharged on Entresto which is not on his home meds at this time. He was also sent home on 40 mg of Lasix and 25 mg of spironolactone. This apparently was changed to torsemide 40 mg. Patient was also started on valsartan as an outpatient instead of Entresto. 03/02/2021 75-year-old male with history of diabetes, peripheral vascular disease, heart failure with reduced ejection fraction and diastolic failure, recent fracture of the right ankle in a walking boot and multiple lower extremity wounds. Admitted with worsening lower extremity pain, prerenal acute renal failure, and heart failure. Creatinine decreased from 2.3-2.1 and BUN decreased from 60-54. Estimated GFR is slightly improved from 28-31. Blood sugars well controlled in the low to mid one hundreds. He has been on normal saline 75 mL an hour. He does have what appears to be sleep apnea, but he will not keep the oximetry on his finger overnight. He did have a significant drop in oxygen saturations when he took a nap during the day. We will try to use CPAP overnight. This should help both his heart failure and his sleep apnea. Continue trying to give him duo nebs. Recheck CBC, CMP, mag in the morning. 03/03/2021 75-year-old male with acute on chronic renal insufficiency and heart failure with reduced ejection fraction and diastolic dysfunction continues to have slow, but consistent improvement in his renal function. Today his creatinine is down to 2.0 and BUN is 46. The still has a significant prerenal distribution. Yesterday I stopped his fluids because of increasing weight gain and swelling in his lower extremities. Today we will give him some Lasix 40 mg IV x1. We will follow his renal function very closely. Continue on DuoNeb for his COPD and sliding scale for his diabetes. Patient has multiple lower extremity excoriations and wounds that are being treated by physical therapy. At this time they recommend bacitracin ointment with nonadherent dressing. Patient will require placement at a skilled care facility secondary to him not being able to care for himself at home and his not able to care for him. 03/04/2021 75-year-old male with acute on chronic renal insufficiency and heart failure is slowly improving. Patient generally states he is feeling well and he is getting treatment of his lower extremity ulcers. Patient is currently awaiting placement. We are holding his valsartan secondary to his acute renal insufficiency and I am restarting his Lasix that he was discharged from our facility on. Torsemide has been stopped. Continue with spironolactone. Plan * Admit to medical floor on telemetry * PT * Lasix 40 mg p.o. daily * Close monitoring of respiratory status * Nicotine patch 21 mcg daily * Continue to hold torsemide * Continue spironolactone * Hold valsartan secondary to renal failure * Sliding scale insulin and bedside glucose monitoring 4 times daily * [place] for foot pain and continue nortriptyline 50 mg daily * Follow renal function closely * VTE prophylaxis with Lovenox * CODE STATUS: Full code * emergency services dispatcher informed me that family does not think she can take him home. Patient will be kept over the weekend for placement. * Length of stay greater than 96 hours secondary to placement
[2021-03-04] MEDS: Rosuvastatin 10 MG Tab PO SCH (21:12)
[2021-03-04] MEDS: Nortriptyline 25 MG Cap PO SCH (21:12)
[2021-03-04] MEDS: Latanoprost 0.005% Ophth Soln 2.5 ML Bottle EYERT SCH (21:13)
[2021-03-05] MEDS: Albuterol/Ipratropium 3.0-0.5 MG/3 ML Neb Soln NEB SCH ×4 (02:48→22:04)
[2021-03-05] MEDS: Nicotine 21 MG/24 Hr Patch TRDERM SCH (08:12)
[2021-03-05] MEDS: Enoxaparin 40 MG/0.4 ML Syringe SUBCUT SCH (08:12)
[2021-03-05] MEDS: PARoxetine 20 MG Tab PO SCH (08:13)
[2021-03-05] MEDS: Clopidogrel 75 MG Tab PO SCH (08:13)
[2021-03-05] MEDS: Metoprolol Succinate 50 MG Tab.ER PO SCH (08:13)
[2021-03-05] MEDS: Insulin Lispro 100 Unit/ML 3 ML KwikPen SUBCUT SCH ×4 (08:19→22:00)
[2021-03-05] MEDS: Acetaminophen 325 MG Tab PO PRN (08:25)
--- NOTE | 2021-03-05 12:00 | PCM.PN ---
- General Info Date of Service: 03/05/21 Admission Dx/Problem (Free Text): Admission Diagnosis/Problem Admission Diagnosis/Problem Prerenal renal failure Subjective Update: Patient states that he feels like he is getting better. He has less pain in his legs. Appetite is still poor. Functional Status: Reports: Pain Controlled - Review of Systems General: Reports: No Symptoms HEENT: Reports: No Symptoms Pulmonary: Reports: No Symptoms Cardiovascular: Reports: No Symptoms Gastrointestinal: Reports: No Symptoms Musculoskeletal: Reports: No Symptoms Skin: Reports: Other (Ball of the left foot with excoriation and skin lesions.) - Patient Data Vitals - Most Recent: Last Vital Signs Temp 97.2 F 03/05/21 04:13 Pulse 70 03/05/21 08:13 Resp 20 03/05/21 04:13 BP 130/75 03/05/21 08:13 Pulse Ox 96 03/05/21 08:05 Weight - Most Recent: 187 lb 12.8 oz I&O - Last 24 Hours: Intake & Output 03/04/21 03/05/21 03/05/21 22:59 06:59 14:59 Intake Total 1375 650 Output Total 270 652 9495 Balance 875 -250 -1160 Lab Results Last 24 Hours: Laboratory Results - last 24 hr 03/04/21 03/04/21 03/04/21 Range/Units 11:57 17:15 21:09 WBC (4.23-9.07) K/mm3 RBC (4.63-6.08) M/mm3 Hgb (13.7-17.5) gm/dl Hct (40.1-51.0) % MCV (79.0-92.2) fl MCH (25.7-32.2) pg MCHC (32.2-35.5) g/dl RDW Std Deviation (35.1-43.9) fL Plt Count (163-337) K/mm3 MPV (9.4-12.3) fl Neut % (Auto) (34.0-67.9) % Lymph % (Auto) (21.8-53.1) % [place] % (Auto) (5.3-12.2) % Eos % (Auto) (0.8-7.0) Baso % (Auto) (0.1-1.2) % Neut # (Auto) (1.78-5.38) K/mm3 Lymph # (Auto) (1.32-3.57) K/mm3 [place] # (Auto) (0.30-0.82) K/mm3 Eos # (Auto) (0.04-0.54) K/mm3 Baso # (Auto) (0.01-0.08) K/mm3 Sodium (136-145) mEq/L Potassium (3.5-5.1) mEq/L Chloride (98-107) mEq/L Carbon Dioxide (21-32) mEq/L Anion Gap (5-15) BUN (7-18) mg/dL Creatinine (0.7-1.3) mg/dL Est Cr Clr Drug Dosing mL/min Estimated GFR (MDRD) (>60) mL/min BUN/Creatinine Ratio (14-18) Glucose (70-99) mg/dL POC Glucose 160 H 116 H 131 H (70-99) mg/dL Calcium (8.5-10.1) mg/dL Magnesium (1.8-2.4) mg/dL Total Bilirubin (0.2-1.0) mg/dL AST (15-37) U/L ALT (16-63) U/L Alkaline Phosphatase (46-116) U/L C-Reactive Protein (<1.0) mg/dL Total Protein (6.4-8.2) g/dl Albumin (3.4-5.0) g/dl Globulin gm/dL Albumin/Globulin Ratio (1-2) Urine Color (Yellow) Urine Appearance (Clear) Urine pH (5.0-8.0) Ur Specific [place] (1.005-1.030) Urine Protein (Negative) Urine Glucose (UA) (Negative) Urine Ketones (Negative) Urine Occult Blood (Negative) Urine Nitrite (Negative) Urine Bilirubin (Negative) Urine Urobilinogen (0.2-1.0) Ur Leukocyte Esterase (Negative) U Hyaline Cast (Auto) (0-5) /lpf Urine RBC (0-5) /hpf Urine WBC (0-5) /hpf Ur Epithelial Cells (0-5) /hpf Urine Bacteria (FEW) /hpf Urine Mucus (FEW) /hpf 03/05/21 03/05/21 03/05/21 Range/Units 05:04 05:04 06:30 WBC 8.64 (4.23-9.07) K/mm3 RBC 3.62 L (4.63-6.08) M/mm3 Hgb 11.3 L (13.7-17.5) gm/dl Hct 35.2 L (40.1-51.0) % MCV 97.2 H (79.0-92.2) fl MCH 31.2 (25.7-32.2) pg MCHC 32.1 L (32.2-35.5) g/dl RDW Std Deviation 52.4 H (35.1-43.9) fL Plt Count 286 (163-337) K/mm3 MPV 8.9 L (9.4-12.3) fl Neut % (Auto) 72.7 H (34.0-67.9) % Lymph % (Auto) 18.1 L (21.8-53.1) % [place] % (Auto) 8.2 (5.3-12.2) % Eos % (Auto) 0.6 L (0.8-7.0) Baso % (Auto) 0.1 (0.1-1.2) % Neut # (Auto) 6.28 H (1.78-5.38) K/mm3 Lymph # (Auto) 1.56 (1.32-3.57) K/mm3 [place] # (Auto) 0.71 (0.30-0.82) K/mm3 Eos # (Auto) 0.05 (0.04-0.54) K/mm3 Baso # (Auto) 0.01 (0.01-0.08) K/mm3 Sodium 137 (136-145) mEq/L Potassium 4.6 (3.5-5.1) mEq/L Chloride 103 (98-107) mEq/L Carbon Dioxide 22 (21-32) mEq/L Anion Gap 16.6 H (5-15) BUN 47 H (7-18) mg/dL Creatinine 2.1 H (0.7-1.3) mg/dL Est Cr Clr Drug Dosing 31.33 mL/min Estimated GFR (MDRD) 31 (>60) mL/min BUN/Creatinine Ratio 22.4 H (14-18) Glucose 120 H (70-99) mg/dL POC Glucose 113 H (70-99) mg/dL Calcium 8.7 (8.5-10.1) mg/dL Magnesium 2.0 (1.8-2.4) mg/dL Total Bilirubin 1.0 (0.2-1.0) mg/dL AST 70 H (15-37) U/L ALT 88 H (16-63) U/L Alkaline Phosphatase 92 (46-116) U/L C-Reactive Protein < 0.2 (<1.0) mg/dL Total Protein 6.2 L (6.4-8.2) g/dl Albumin 3.2 L (3.4-5.0) g/dl Globulin 3.0 gm/dL Albumin/Globulin Ratio 1.1 (1-2) Urine Color (Yellow) Urine Appearance (Clear) Urine pH (5.0-8.0) Ur Specific [place] (1.005-1.030) Urine Protein (Negative) Urine Glucose (UA) (Negative) Urine Ketones (Negative) Urine Occult Blood (Negative) Urine Nitrite (Negative) Urine Bilirubin (Negative) Urine Urobilinogen (0.2-1.0) Ur Leukocyte Esterase (Negative) U Hyaline Cast (Auto) (0-5) /lpf Urine RBC (0-5) /hpf Urine WBC (0-5) /hpf Ur Epithelial Cells (0-5) /hpf Urine Bacteria (FEW) /hpf Urine Mucus (FEW) /hpf 03/05/21 03/05/21 Range/Units 09:45 10:54 WBC (4.23-9.07) K/mm3 RBC (4.63-6.08) M/mm3 Hgb (13.7-17.5) gm/dl Hct (40.1-51.0) % MCV (79.0-92.2) fl MCH (25.7-32.2) pg MCHC (32.2-35.5) g/dl RDW Std Deviation (35.1-43.9) fL Plt Count (163-337) K/mm3 MPV (9.4-12.3) fl Neut % (Auto) (34.0-67.9) % Lymph % (Auto) (21.8-53.1) % [place] % (Auto) (5.3-12.2) % Eos % (Auto) (0.8-7.0) Baso % (Auto) (0.1-1.2) % Neut # (Auto) (1.78-5.38) K/mm3 Lymph # (Auto) (1.32-3.57) K/mm3 [place] # (Auto) (0.30-0.82) K/mm3 Eos # (Auto) (0.04-0.54) K/mm3 Baso # (Auto) (0.01-0.08) K/mm3 Sodium (136-145) mEq/L Potassium (3.5-5.1) mEq/L Chloride (98-107) mEq/L Carbon Dioxide (21-32) mEq/L Anion Gap (5-15) BUN (7-18) mg/dL Creatinine (0.7-1.3) mg/dL Est Cr Clr Drug Dosing mL/min Estimated GFR (MDRD) (>60) mL/min BUN/Creatinine Ratio (14-18) Glucose (70-99) mg/dL POC Glucose 124 H (70-99) mg/dL Calcium (8.5-10.1) mg/dL Magnesium (1.8-2.4) mg/dL Total Bilirubin (0.2-1.0) mg/dL AST (15-37) U/L ALT (16-63) U/L Alkaline Phosphatase (46-116) U/L C-Reactive Protein (<1.0) mg/dL Total Protein (6.4-8.2) g/dl Albumin (3.4-5.0) g/dl Globulin gm/dL Albumin/Globulin Ratio (1-2) Urine Color Yellow (Yellow) Urine Appearance Clear (Clear) Urine pH 6.0 (5.0-8.0) Ur Specific [place] 1.020 (1.005-1.030) Urine Protein 2+ H (Negative) Urine Glucose (UA) Negative (Negative) Urine Ketones Negative (Negative) Urine Occult Blood Trace-lysed H (Negative) Urine Nitrite Negative (Negative) Urine Bilirubin Negative (Negative) Urine Urobilinogen 0.2 (0.2-1.0) Ur Leukocyte Esterase Trace H (Negative) U Hyaline Cast (Auto) 5-10 H (0-5) /lpf Urine RBC 0-5 (0-5) /hpf Urine WBC 0-5 (0-5) /hpf Ur Epithelial Cells 0-5 (0-5) /hpf Urine Bacteria Few (FEW) /hpf Urine Mucus Moderate H (FEW) /hpf Med Orders - Current: Current Medications Acetaminophen (Acetaminophen 325 Mg Tab) 650 mg PO Q4H PRN PRN Reason: Pain (Mild 1-3)/fever Last Admin: 03/05/21 08:25 Dose: 650 mg Documented by: Hydrocodone Bitart/Acetaminophen (Acetaminophen/Hydrocodone 325-5 Mg Tab) 1 tab PO Q4H PRN PRN Reason: Pain (moderate 4-6) Albuterol/Ipratropium (Albuterol/Ipratropium 3.0-0.5 Mg/3 Ml Neb Soln) 3 ml NEB Q6HRRT [facility] Last Admin: 03/05/21 08:05 Dose: 3 ml Documented by: Clopidogrel Bisulfate (Clopidogrel 75 Mg Tab) 75 mg PO DAILY [facility] Last Admin: 03/05/21 08:13 Dose: 75 mg Documented by: Enoxaparin Sodium (Enoxaparin 40 Mg/0.4 Ml Syringe) 40 mg SUBCUT DAILY [facility] Last Admin: 03/05/21 08:12 Dose: 40 mg Documented by: Insulin Human Lispro (Insulin Lispro 100 Unit/Ml 3 Ml Kwikpen) 0 unit SUBCUT QIDACANDBED [facility]; Protocol Last Admin: 03/05/21 08:19 Dose: Not Given Documented by: Latanoprost (Latanoprost 0.005% Ophth Soln 2.5 Ml Bottle) 0 ml EYERT BEDTIME [facility] Last Admin: 03/04/21 21:13 Dose: 1 drop Documented by: Metoprolol Succinate (Metoprolol Succinate 50 Mg Tab.Er) 200 mg PO DAILY [facility] Last Admin: 03/05/21 08:13 Dose: 200 mg Documented by: Miscellaneous Information (Remove Patch) 0 ea TRDERM DAILY [facility] Last Admin: 03/05/21 08:20 Dose: 1 ea Documented by: Nicotine (Nicotine 21 Mg/24 Hr Patch) 21 mg TRDERM DAILY [facility] Last Admin: 03/05/21 08:12 Dose: 21 mg Documented by: Nortriptyline HCl (Nortriptyline 25 Mg Cap) 50 mg PO BEDTIME [facility] Last Admin: 03/04/21 21:12 Dose: 50 mg Documented by: Ondansetron HCl (Ondansetron 4 Mg/2 Ml Sdv) 4 mg IV Q6H PRN PRN Reason: Nausea/Vomiting Paroxetine HCl (Paroxetine 20 Mg Tab) 20 mg PO DAILY [facility] Last Admin: 03/05/21 08:13 Dose: 20 mg Documented by: Rosuvastatin Calcium (Rosuvastatin 10 Mg Tab) 40 mg PO BEDTIME [facility] Last Admin: 03/04/21 21:12 Dose: 40 mg Documented by: Discontinued Medications Furosemide (Furosemide 40 Mg/4 Ml Vial) 40 mg IVPUSH DAILY [facility] Last Admin: 03/03/21 11:44 Dose: 40 mg Documented by: Furosemide (Furosemide 40 Mg Tab) 40 mg PO DAILY [facility] Last Admin: 03/04/21 09:08 Dose: 40 mg Documented by: Sodium Chloride (Normal Saline) 1,000 mls @ 75 mls/hr IV ASDIRECTED [facility] Stop: 03/02/21 14:00 Last Admin: 03/02/21 06:44 Dose: 75 mls/hr Documented by: Rosuvastatin Calcium (Rosuvastatin 10 Mg Tab) 20 mg PO BEDTIME [facility] Last Admin: 03/01/21 20:37 Dose: 20 mg Documented by: Spironolactone (Spironolactone 25 Mg Tab) 25 mg PO DAILY [facility] Last Admin: 03/04/21 09:07 Dose: 25 mg Documented by: - Exam Urinary Catheter Total Time: 0Days 1Hours General: Alert, Oriented HEENT: Pupils Equal, Mucous Membr. Moist/[place] Neck: Supple Lungs: Clear to Auscultation, Normal Respiratory Effort Cardiovascular: Regular Rate, Regular Rhythm GI/Abdominal Exam: Normal Bowel Sounds, Soft, Non-Tender, No Distention Extremities: Pedal Edema (2+), Other Skin: Other (Lower extremity excoriations) Psy/Mental Status: Alert, Normal Affect, Normal Mood - Patient Data Lab Results Last 24 hrs: Laboratory Results - last 24 hr 03/04/21 03/04/21 03/04/21 Range/Units 11:57 17:15 21:09 WBC (4.23-9.07) K/mm3 RBC (4.63-6.08) M/mm3 Hgb (13.7-17.5) gm/dl Hct (40.1-51.0) % MCV (79.0-92.2) fl MCH (25.7-32.2) pg MCHC (32.2-35.5) g/dl RDW Std Deviation (35.1-43.9) fL Plt Count (163-337) K/mm3 MPV (9.4-12.3) fl Neut % (Auto) (34.0-67.9) % Lymph % (Auto) (21.8-53.1) % [place] % (Auto) (5.3-12.2) % Eos % (Auto) (0.8-7.0) Baso % (Auto) (0.1-1.2) % Neut # (Auto) (1.78-5.38) K/mm3 Lymph # (Auto) (1.32-3.57) K/mm3 [place] # (Auto) (0.30-0.82) K/mm3 Eos # (Auto) (0.04-0.54) K/mm3 Baso # (Auto) (0.01-0.08) K/mm3 Sodium (136-145) mEq/L Potassium (3.5-5.1) mEq/L Chloride (98-107) mEq/L Carbon Dioxide (21-32) mEq/L Anion Gap (5-15) BUN (7-18) mg/dL Creatinine (0.7-1.3) mg/dL Est Cr Clr Drug Dosing mL/min Estimated GFR (MDRD) (>60) mL/min BUN/Creatinine Ratio (14-18) Glucose (70-99) mg/dL POC Glucose 160 H 116 H 131 H (70-99) mg/dL Calcium (8.5-10.1) mg/dL Magnesium (1.8-2.4) mg/dL Total Bilirubin (0.2-1.0) mg/dL AST (15-37) U/L ALT (16-63) U/L Alkaline Phosphatase (46-116) U/L C-Reactive Protein (<1.0) mg/dL Total Protein (6.4-8.2) g/dl Albumin (3.4-5.0) g/dl Globulin gm/dL Albumin/Globulin Ratio (1-2) Urine Color (Yellow) Urine Appearance (Clear) Urine pH (5.0-8.0) Ur Specific [place] (1.005-1.030) Urine Protein (Negative) Urine Glucose (UA) (Negative) Urine Ketones (Negative) Urine Occult Blood (Negative) Urine Nitrite (Negative) Urine Bilirubin (Negative) Urine Urobilinogen (0.2-1.0) Ur Leukocyte Esterase (Negative) U Hyaline Cast (Auto) (0-5) /lpf Urine RBC (0-5) /hpf Urine WBC (0-5) /hpf Ur Epithelial Cells (0-5) /hpf Urine Bacteria (FEW) /hpf Urine Mucus (FEW) /hpf 03/05/21 03/05/21 03/05/21 Range/Units 05:04 05:04 06:30 WBC 8.64 (4.23-9.07) K/mm3 RBC 3.62 L (4.63-6.08) M/mm3 Hgb 11.3 L (13.7-17.5) gm/dl Hct 35.2 L (40.1-51.0) % MCV 97.2 H (79.0-92.2) fl MCH 31.2 (25.7-32.2) pg MCHC 32.1 L (32.2-35.5) g/dl RDW Std Deviation 52.4 H (35.1-43.9) fL Plt Count 286 (163-337) K/mm3 MPV 8.9 L (9.4-12.3) fl Neut % (Auto) 72.7 H (34.0-67.9) % Lymph % (Auto) 18.1 L (21.8-53.1) % [place] % (Auto) 8.2 (5.3-12.2) % Eos % (Auto) 0.6 L (0.8-7.0) Baso % (Auto) 0.1 (0.1-1.2) % Neut # (Auto) 6.28 H (1.78-5.38) K/mm3 Lymph # (Auto) 1.56 (1.32-3.57) K/mm3 [place] # (Auto) 0.71 (0.30-0.82) K/mm3 Eos # (Auto) 0.05 (0.04-0.54) K/mm3 Baso # (Auto) 0.01 (0.01-0.08) K/mm3 Sodium 137 (136-145) mEq/L Potassium 4.6 (3.5-5.1) mEq/L Chloride 103 (98-107) mEq/L Carbon Dioxide 22 (21-32) mEq/L Anion Gap 16.6 H (5-15) BUN 47 H (7-18) mg/dL Creatinine 2.1 H (0.7-1.3) mg/dL Est Cr Clr Drug Dosing 31.33 mL/min Estimated GFR (MDRD) 31 (>60) mL/min BUN/Creatinine Ratio 22.4 H (14-18) Glucose 120 H (70-99) mg/dL POC Glucose 113 H (70-99) mg/dL Calcium 8.7 (8.5-10.1) mg/dL Magnesium 2.0 (1.8-2.4) mg/dL Total Bilirubin 1.0 (0.2-1.0) mg/dL AST 70 H (15-37) U/L ALT 88 H (16-63) U/L Alkaline Phosphatase 92 (46-116) U/L C-Reactive Protein < 0.2 (<1.0) mg/dL Total Protein 6.2 L (6.4-8.2) g/dl Albumin 3.2 L (3.4-5.0) g/dl Globulin 3.0 gm/dL Albumin/Globulin Ratio 1.1 (1-2) Urine Color (Yellow) Urine Appearance (Clear) Urine pH (5.0-8.0) Ur Specific [place] (1.005-1.030) Urine Protein (Negative) Urine Glucose (UA) (Negative) Urine Ketones (Negative) Urine Occult Blood (Negative) Urine Nitrite (Negative) Urine Bilirubin (Negative) Urine Urobilinogen (0.2-1.0) Ur Leukocyte Esterase (Negative) U Hyaline Cast (Auto) (0-5) /lpf Urine RBC (0-5) /hpf Urine WBC (0-5) /hpf Ur Epithelial Cells (0-5) /hpf Urine Bacteria (FEW) /hpf Urine Mucus (FEW) /hpf 03/05/21 03/05/21 Range/Units 09:45 10:54 WBC (4.23-9.07) K/mm3 RBC (4.63-6.08) M/mm3 Hgb (13.7-17.5) gm/dl Hct (40.1-51.0) % MCV (79.0-92.2) fl MCH (25.7-32.2) pg MCHC (32.2-35.5) g/dl RDW Std Deviation (35.1-43.9) fL Plt Count (163-337) K/mm3 MPV (9.4-12.3) fl Neut % (Auto) (34.0-67.9) % Lymph % (Auto) (21.8-53.1) % [place] % (Auto) (5.3-12.2) % Eos % (Auto) (0.8-7.0) Baso % (Auto) (0.1-1.2) % Neut # (Auto) (1.78-5.38) K/mm3 Lymph # (Auto) (1.32-3.57) K/mm3 [place] # (Auto) (0.30-0.82) K/mm3 Eos # (Auto) (0.04-0.54) K/mm3 Baso # (Auto) (0.01-0.08) K/mm3 Sodium (136-145) mEq/L Potassium (3.5-5.1) mEq/L Chloride (98-107) mEq/L Carbon Dioxide (21-32) mEq/L Anion Gap (5-15) BUN (7-18) mg/dL Creatinine (0.7-1.3) mg/dL Est Cr Clr Drug Dosing mL/min Estimated GFR (MDRD) (>60) mL/min BUN/Creatinine Ratio (14-18) Glucose (70-99) mg/dL POC Glucose 124 H (70-99) mg/dL Calcium (8.5-10.1) mg/dL Magnesium (1.8-2.4) mg/dL Total Bilirubin (0.2-1.0) mg/dL AST (15-37) U/L ALT (16-63) U/L Alkaline Phosphatase (46-116) U/L C-Reactive Protein (<1.0) mg/dL Total Protein (6.4-8.2) g/dl Albumin (3.4-5.0) g/dl Globulin gm/dL Albumin/Globulin Ratio (1-2) Urine Color Yellow (Yellow) Urine Appearance Clear (Clear) Urine pH 6.0 (5.0-8.0) Ur Specific [place] 1.020 (1.005-1.030) Urine Protein 2+ H (Negative) Urine Glucose (UA) Negative (Negative) Urine Ketones Negative (Negative) Urine Occult Blood Trace-lysed H (Negative) Urine Nitrite Negative (Negative) Urine Bilirubin Negative (Negative) Urine Urobilinogen 0.2 (0.2-1.0) Ur Leukocyte Esterase Trace H (Negative) U Hyaline Cast (Auto) 5-10 H (0-5) /lpf Urine RBC 0-5 (0-5) /hpf Urine WBC 0-5 (0-5) /hpf Ur Epithelial Cells 0-5 (0-5) /hpf Urine Bacteria Few (FEW) /hpf Urine Mucus Moderate H (FEW) /hpf Result Diagrams: 03/05/21 05:04 03/05/21 05:04 Sepsis Event Note - Evaluation Sepsis Screening Result: No Definite Risk - Focused Exam Vital Signs: Vital Signs Temp Pulse Resp BP Pulse Ox Pulse Ox 03/05/21 08:13 70 130/75 03/05/21 08:05 96 03/05/21 04:18 102/76 03/05/21 04:13 97.2 F 70 20 141/112 H 100 03/05/21 02:48 98 03/05/21 01:30 67 95 - Problem List & Annotations (1) Leg pain, bilateral SNOMED Code(s): 36279050, 254934941 Code(s): M79.604 - PAIN IN RIGHT LEG; M79.605 - PAIN IN LEFT LEG Status: Acute Current Visit: Yes (2) Acute renal insufficiency SNOMED Code(s): 067745833 Code(s): N28.9 - DISORDER OF KIDNEY AND URETER, UNSPECIFIED Status: Acute Current Visit: Yes (3) Prerenal acute renal failure SNOMED Code(s): 306506897198086 Code(s): N17.9 - ACUTE KIDNEY FAILURE, UNSPECIFIED Status: Acute Current Visit: Yes (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 SNOMED Code(s): 98202118, 458968756 Code(s): I50.40 - UNSP COMBINED SYSTOLIC AND DIASTOLIC (CONGESTIVE) HRT FAIL Status: Acute Priority: High Current Visit: No Qualifiers: Heart failure chronicity: acute Qualified Code(s): I50.41 - Acute combined systolic (congestive) and diastolic (congestive) heart failure (5) Elevated brain natriuretic peptide (BNP) level SNOMED Code(s): 434872349, 748210148 Code(s): R79.89 - OTHER SPECIFIED ABNORMAL FINDINGS OF BLOOD CHEMISTRY Status: Acute Priority: High Current Visit: No (6) Generalized weakness SNOMED Code(s): 35514880 Code(s): R53.1 - WEAKNESS Status: Acute Priority: High Current Visit: No (7) HTN (hypertension) SNOMED Code(s): 69994375 Code(s): I10 - ESSENTIAL (PRIMARY) HYPERTENSION Status: Chronic Priority: Medium Current Visit: No Qualifiers: Hypertension type: unspecified Qualified Code(s): I10 - Essential (primary) hypertension (8) History of coronary artery stent placement SNOMED Code(s): 768916261, 658406211 Code(s): Z95.5 - PRESENCE OF CORONARY ANGIOPLASTY IMPLANT AND GRAFT Status: Chronic Priority: Low Current Visit: No (9) Open wound, lower leg SNOMED Code(s): 043275284 Code(s): S81.809A - UNSPECIFIED OPEN WOUND, UNSPECIFIED LOWER LEG, INIT ENCNTR Status: Acute Current Visit: Yes - Problem List Review Problem List Initiated/Reviewed/Updated: Yes - My Orders Last 24 Hours: My Active Orders 03/04/21 14:57 Wound Care [RC] DAILY 03/05/21 01:00 Bladder Scan [RC] ASDIRECTED 03/05/21 01:07 Patient Status [ADT] Routine 03/05/21 06:05 Anti-Embolism Stockings AK [Antiembolic Hose] [OM.PC] Routine 03/05/21 06:06 Antiembolic Devices [RC] PER UNIT ROUTINE 03/05/21 10:34 Bladder Scan [RC] PRN Communication Order [RC] ASDIRECTED Notify Provider Intake and Out [RC] ASDIRECTED Urinary Catheter Assessment [RC] ASDIRECTED 03/05/21 10:45 Insert Urinary Catheter [OM.PC] PRN 03/06/21 05:11 C-REACTIVE PROTEIN [CHEM] AM CBC WITH AUTO DIFF [HEME] AM CMP [COMPREHENSIVE METABOLIC PN,CMP] [CHEM] AM MAGNESIUM [CHEM] AM 03/06/21 10:45 Insert Urinary Catheter [OM.PC] PRN - Plan Plan:: 75-year-old male with history of diabetes, peripheral vascular disease, mixed congestive heart failure presents to the emergency department with lower extremity pain. Lower extremity pain Peripheral vascular disease post lower extremity vascular stenting Coronary artery disease * Patient presents with worsening pain in his lower extremities. * Initial concern for CVA ruled out with MRI * Currently patient states he is having no pain. Pain is worse with ambulation. 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 Pseudonormal, grade 2, pattern of LV diastolic filling. Trace aortic and mitral valve regurgitation. * proBNP today is 27,672. This is likely spuriously high because of his renal failure. Patient has only minimal lower extremity edema and chest x-ray shows no significant vascular congestion. Lung sounds are mainly significant for wheezing. Diabetes * Hemoglobin A1c 6.3 * Home medications include Metformin Acute on chronic renal insufficiency/prerenal * BUN 60 and creatinine 2.3 * When patient was discharged from here in November creatinine was 1.3 * Estimated GFR 28 today and 54 on December 29 * Currently on torsemide 40 mg daily and spironolactone 25 mg daily Tobaccoism/COPD * Lungs wheezy throughout Review of his previous hospitalization shows he was discharged on Entresto which is not on his home meds at this time. He was also sent home on 40 mg of Lasix and 25 mg of spironolactone. This apparently was changed to torsemide 40 mg. Patient was also started on valsartan as an outpatient instead of Entresto. 03/02/2021 75-year-old male with history of diabetes, peripheral vascular disease, heart failure with reduced ejection fraction and diastolic failure, recent fracture of the right ankle in a walking boot and multiple lower extremity wounds. Adm itted with worsening lower extremity pain, prerenal acute renal failure, and heart failure. Creatinine decreased from 2.3-2.1 and BUN decreased from 60-54. Estimated GFR is slightly improved from 28-31. Blood sugars well controlled in the low to mid one hundreds. He has been on normal saline 75 mL an hour. He does have what appears to be sleep apnea, but he will not keep the oximetry on his finger overnight. He did have a significant drop in oxygen saturations when he took a nap during the day. We will try to use CPAP overnight. This should help both his heart failure and his sleep apnea. Continue trying to give him duo nebs. Recheck CBC, CMP, mag in the morning. 03/03/2021 75-year-old male with acute on chronic renal insufficiency and heart failure with reduced ejection fraction and diastolic dysfunction continues to have slow, but consistent improvement in his renal function. Today his creatinine is down to 2.0 and BUN is 46. The still has a significant prerenal distribution. Yesterday I stopped his fluids because of increasing weight gain and swelling in his lower extremities. Today we will give him some Lasix 40 mg IV x1. We will follow his renal function very closely. Continue on DuoNeb for his COPD and sliding scale for his diabetes. Patient has multiple lower extremity excoriations and wounds that are being treated by physical therapy. At this time they recommend bacitracin ointment with nonadherent dressing. Patient will require placement at a skilled care facility secondary to him not being able to care for himself at home and his not able to care for him. 03/04/2021 75-year-old male with acute on chronic renal insufficiency and heart failure is slowly improving. Patient generally states he is feeling well and he is getting treatment of his lower extremity ulcers. Patient is currently awaiting placement. We are holding his valsartan secondary to his acute renal insufficiency and I am restarting his Lasix that he was discharged from our facility on. Torsemide has been stopped. Continue with spironolactone. 03/05/2021 75-year-old male with acute on chronic renal insufficiency and heart failure with no significant change overnight. Yesterday restarted his Lasix and kept him on his spironolactone and his creatinine went from 2.0-2.1. He does think he is getting some improvement in his legs. White count is normal at 8.6. BUN is 47. AST 70, ALT 88. Physical therapy has evaluated his lower extremity wounds and recommends Bactroban with nonadherent dressing. He still has 2+ pitting edema. Will hold his diuretics, Lasix and spironolactone, today and reevaluate renal function tomorrow. Also put compression stockings on. Plan * Admit to medical floor on telemetry * PT * Hold Lasix 40 mg p.o. daily * Close monitoring of respiratory status * Nicotine patch 21 mcg daily * Stop torsemide * Hold spironolactone * Hold valsartan secondary to renal failure * Sliding scale insulin and bedside glucose monitoring 4 times daily * Bethelridge for foot pain and continue nortriptyline 50 mg daily * Compression stockings * Follow renal function closely * VTE prophylaxis with Lovenox * CODE STATUS: Full code * youth services specialist informed me that family does not think she can take him home. Patient will be kept over the weekend for placement. Length of stay greater than 96 hours secondary to placement
[2021-03-05] MEDS ORDERED: Nystatin Topical Powder 15 GM Bottle TOP SCH (15:15)
[2021-03-05] MEDS: Nystatin Topical Powder 15 GM Bottle TOP PRN (18:58)
[2021-03-05] MEDS: Latanoprost 0.005% Ophth Soln 2.5 ML Bottle EYERT SCH (21:51)
[2021-03-05] MEDS: Rosuvastatin 10 MG Tab PO SCH (21:51)
[2021-03-05] MEDS: Nortriptyline 25 MG Cap PO SCH ×2 (21:51→23:59)
[2021-03-06] MEDS: Albuterol/Ipratropium 3.0-0.5 MG/3 ML Neb Soln NEB SCH ×4 (02:33→20:01)
[2021-03-06] MEDS: Nystatin Topical Powder 15 GM Bottle TOP PRN (02:54)
[2021-03-06] MEDS: Insulin Lispro 100 Unit/ML 3 ML KwikPen SUBCUT SCH ×4 (09:00→21:11)
[2021-03-06] MEDS: Metoprolol Succinate 50 MG Tab.ER PO SCH (09:04)
[2021-03-06] MEDS: Enoxaparin 40 MG/0.4 ML Syringe SUBCUT SCH (09:04)
[2021-03-06] MEDS: Clopidogrel 75 MG Tab PO SCH (09:04)
[2021-03-06] MEDS: PARoxetine 20 MG Tab PO SCH (09:04)
[2021-03-06] MEDS: Nicotine 21 MG/24 Hr Patch TRDERM SCH (09:04)
--- NOTE | 2021-03-06 10:21 | PCM.PN ---
- General Info Date of Service: 03/06/21 Admission Dx/Problem (Free Text): Admission Diagnosis/Problem Admission Diagnosis/Problem Prerenal renal failure Subjective Update: Patient developed urinary outflow obstruction overnight and required Cadena catheter. Unfortunately, it was uncomfortable and they had to replace it. This morning he has blood coming from his catheter although it is no longer painful. Functional Status: Reports: Pain Controlled - Review of Systems General: Reports: No Symptoms HEENT: Reports: No Symptoms Pulmonary: Reports: No Symptoms Cardiovascular: Reports: No Symptoms Gastrointestinal: Reports: No Symptoms Musculoskeletal: Reports: No Symptoms - Patient Data Vitals - Most Recent: Last Vital Signs Temp 97.0 F 03/06/21 08:08 Pulse 67 03/06/21 09:04 Resp 23 H 03/06/21 08:08 BP 131/93 H 03/06/21 09:04 Pulse Ox 100 03/06/21 08:24 Weight - Most Recent: 186 lb 9.6 oz I&O - Last 24 Hours: Intake & Output 03/05/21 03/06/21 03/06/21 22:59 06:59 14:59 Intake Total 400 500 Output Total 100 700 Balance 300 -200 Lab Results Last 24 Hours: Laboratory Results - last 24 hr 03/05/21 03/05/21 03/05/21 Range/Units 09:45 10:54 16:41 WBC (4.23-9.07) K/mm3 RBC (4.63-6.08) M/mm3 Hgb (13.7-17.5) gm/dl Hct (40.1-51.0) % MCV (79.0-92.2) fl MCH (25.7-32.2) pg MCHC (32.2-35.5) g/dl RDW Std Deviation (35.1-43.9) fL Plt Count (163-337) K/mm3 MPV (9.4-12.3) fl Neut % (Auto) (34.0-67.9) % Lymph % (Auto) (21.8-53.1) % Boundary % (Auto) (5.3-12.2) % Eos % (Auto) (0.8-7.0) Baso % (Auto) (0.1-1.2) % Neut # (Auto) (1.78-5.38) K/mm3 Lymph # (Auto) (1.32-3.57) K/mm3 Boundary # (Auto) (0.30-0.82) K/mm3 Eos # (Auto) (0.04-0.54) K/mm3 Baso # (Auto) (0.01-0.08) K/mm3 Sodium (136-145) mEq/L Potassium (3.5-5.1) mEq/L Chloride (98-107) mEq/L Carbon Dioxide (21-32) mEq/L Anion Gap (5-15) BUN (7-18) mg/dL Creatinine (0.7-1.3) mg/dL Est Cr Clr Drug Dosing mL/min Estimated GFR (MDRD) (>60) mL/min BUN/Creatinine Ratio (14-18) Glucose (70-99) mg/dL POC Glucose 124 H 124 H (70-99) mg/dL Calcium (8.5-10.1) mg/dL Magnesium (1.8-2.4) mg/dL Total Bilirubin (0.2-1.0) mg/dL AST (15-37) U/L ALT (16-63) U/L Alkaline Phosphatase (46-116) U/L C-Reactive Protein (<1.0) mg/dL Total Protein (6.4-8.2) g/dl Albumin (3.4-5.0) g/dl Globulin gm/dL Albumin/Globulin Ratio (1-2) U Hyaline Cast (Auto) 5-10 H (0-5) /lpf Urine RBC 0-5 (0-5) /hpf Urine WBC 0-5 (0-5) /hpf Ur Epithelial Cells 0-5 (0-5) /hpf Urine Bacteria Few (FEW) /hpf Urine Mucus Moderate H (FEW) /hpf SARS-CoV-2 RNA (JERRY) (NEGATIVE) 03/05/21 03/06/21 03/06/21 Range/Units 20:46 05:04 05:04 WBC 9.85 H (4.23-9.07) K/mm3 RBC 3.96 L (4.63-6.08) M/mm3 Hgb 12.3 L (13.7-17.5) gm/dl Hct 38.4 L (40.1-51.0) % MCV 97.0 H (79.0-92.2) fl MCH 31.1 (25.7-32.2) pg MCHC 32.0 L (32.2-35.5) g/dl RDW Std Deviation 53.4 H (35.1-43.9) fL Plt Count 300 (163-337) K/mm3 MPV 9.1 L (9.4-12.3) fl Neut % (Auto) 78.0 H (34.0-67.9) % Lymph % (Auto) 12.3 L (21.8-53.1) % Boundary % (Auto) 8.4 (5.3-12.2) % Eos % (Auto) 0.7 L (0.8-7.0) Baso % (Auto) 0.2 (0.1-1.2) % Neut # (Auto) 7.68 H (1.78-5.38) K/mm3 Lymph # (Auto) 1.21 L (1.32-3.57) K/mm3 Boundary # (Auto) 0.83 H (0.30-0.82) K/mm3 Eos # (Auto) 0.07 (0.04-0.54) K/mm3 Baso # (Auto) 0.02 (0.01-0.08) K/mm3 Sodium 138 (136-145) mEq/L Potassium 4.5 (3.5-5.1) mEq/L Chloride 103 (98-107) mEq/L Carbon Dioxide 23 (21-32) mEq/L Anion Gap 16.5 H (5-15) BUN 48 H (7-18) mg/dL Creatinine 2.1 H (0.7-1.3) mg/dL Est Cr Clr Drug Dosing 31.33 mL/min Estimated GFR (MDRD) 31 (>60) mL/min BUN/Creatinine Ratio 22.9 H (14-18) Glucose 127 H (70-99) mg/dL POC Glucose 139 H (70-99) mg/dL Calcium 8.6 (8.5-10.1) mg/dL Magnesium 2.1 (1.8-2.4) mg/dL Total Bilirubin 0.8 (0.2-1.0) mg/dL AST 60 H (15-37) U/L ALT 116 H (16-63) U/L Alkaline Phosphatase 90 (46-116) U/L C-Reactive Protein 0.5 (<1.0) mg/dL Total Protein 6.2 L (6.4-8.2) g/dl Albumin 3.3 L (3.4-5.0) g/dl Globulin 2.9 gm/dL Albumin/Globulin Ratio 1.1 (1-2) U Hyaline Cast (Auto) (0-5) /lpf Urine RBC (0-5) /hpf Urine WBC (0-5) /hpf Ur Epithelial Cells (0-5) /hpf Urine Bacteria (FEW) /hpf Urine Mucus (FEW) /hpf SARS-CoV-2 RNA (JERRY) (NEGATIVE) 03/06/21 03/06/21 Range/Units 06:26 08:56 WBC (4.23-9.07) K/mm3 RBC (4.63-6.08) M/mm3 Hgb (13.7-17.5) gm/dl Hct (40.1-51.0) % MCV (79.0-92.2) fl MCH (25.7-32.2) pg MCHC (32.2-35.5) g/dl RDW Std Deviation (35.1-43.9) fL Plt Count (163-337) K/mm3 MPV (9.4-12.3) fl Neut % (Auto) (34.0-67.9) % Lymph % (Auto) (21.8-53.1) % Boundary % (Auto) (5.3-12.2) % Eos % (Auto) (0.8-7.0) Baso % (Auto) (0.1-1.2) % Neut # (Auto) (1.78-5.38) K/mm3 Lymph # (Auto) (1.32-3.57) K/mm3 Boundary # (Auto) (0.30-0.82) K/mm3 Eos # (Auto) (0.04-0.54) K/mm3 Baso # (Auto) (0.01-0.08) K/mm3 Sodium (136-145) mEq/L Potassium (3.5-5.1) mEq/L Chloride (98-107) mEq/L Carbon Dioxide (21-32) mEq/L Anion Gap (5-15) BUN (7-18) mg/dL Creatinine (0.7-1.3) mg/dL Est Cr Clr Drug Dosing mL/min Estimated GFR (MDRD) (>60) mL/min BUN/Creatinine Ratio (14-18) Glucose (70-99) mg/dL POC Glucose 111 H (70-99) mg/dL Calcium (8.5-10.1) mg/dL Magnesium (1.8-2.4) mg/dL Total Bilirubin (0.2-1.0) mg/dL AST (15-37) U/L ALT (16-63) U/L Alkaline Phosphatase (46-116) U/L C-Reactive Protein (<1.0) mg/dL Total Protein (6.4-8.2) g/dl Albumin (3.4-5.0) g/dl Globulin gm/dL Albumin/Globulin Ratio (1-2) U Hyaline Cast (Auto) (0-5) /lpf Urine RBC (0-5) /hpf Urine WBC (0-5) /hpf Ur Epithelial Cells (0-5) /hpf Urine Bacteria (FEW) /hpf Urine Mucus (FEW) /hpf SARS-CoV-2 RNA (JERRY) Negative (NEGATIVE) Med Orders - Current: Current Medications Acetaminophen (Acetaminophen 325 Mg Tab) 650 mg PO Q4H PRN PRN Reason: Pain (Mild 1-3)/fever Last Admin: 03/05/21 08:25 Dose: 650 mg Documented by: Hydrocodone Bitart/Acetaminophen (Acetaminophen/Hydrocodone 325-5 Mg Tab) 1 tab PO Q4H PRN PRN Reason: Pain (moderate 4-6) Albuterol/Ipratropium (Albuterol/Ipratropium 3.0-0.5 Mg/3 Ml Neb Soln) 3 ml NEB Q6HRRT [facility] Last Admin: 03/06/21 08:23 Dose: 3 ml Documented by: Clopidogrel Bisulfate (Clopidogrel 75 Mg Tab) 75 mg PO DAILY [facility] Last Admin: 03/06/21 09:04 Dose: 75 mg Documented by: Enoxaparin Sodium (Enoxaparin 40 Mg/0.4 Ml Syringe) 40 mg SUBCUT DAILY [facility] Last Admin: 03/06/21 09:04 Dose: 40 mg Documented by: Insulin Human Lispro (Insulin Lispro 100 Unit/Ml 3 Ml Kwikpen) 0 unit SUBCUT QIDACANDBED [facility]; Protocol Last Admin: 03/06/21 09:00 Dose: Not Given Documented by: Latanoprost (Latanoprost 0.005% Ophth Soln 2.5 Ml Bottle) 0 ml EYERT BEDTIME [facility] Last Admin: 03/05/21 21:51 Dose: 1 drop Documented by: Metoprolol Succinate (Metoprolol Succinate 50 Mg Tab.Er) 200 mg PO DAILY [facility] Last Admin: 03/06/21 09:04 Dose: 200 mg Documented by: Miscellaneous Information (Remove Patch) 0 ea TRDERM DAILY [facility] Last Admin: 03/06/21 09:05 Dose: 1 ea Documented by: Nicotine (Nicotine 21 Mg/24 Hr Patch) 21 mg TRDERM DAILY [facility] Last Admin: 03/06/21 09:04 Dose: 21 mg Documented by: Nortriptyline HCl (Nortriptyline 25 Mg Cap) 50 mg PO BEDTIME [facility] Last Admin: 03/05/21 23:59 Dose: 25 mg Documented by: Nystatin (Nystatin Topical Powder 15 Gm Bottle) 0 gm TOP Q6H PRN PRN Reason: excoriation Last Admin: 03/06/21 02:54 Dose: 1 applic Documented by: Ondansetron HCl (Ondansetron 4 Mg/2 Ml Sdv) 4 mg IV Q6H PRN PRN Reason: Nausea/Vomiting Paroxetine HCl (Paroxetine 20 Mg Tab) 20 mg PO DAILY [facility] Last Admin: 03/06/21 09:04 Dose: 20 mg Documented by: Rosuvastatin Calcium (Rosuvastatin 10 Mg Tab) 40 mg PO BEDTIME [facility] Last Admin: 03/06/21 00:00 Dose: 30 mg Documented by: Discontinued Medications Furosemide (Furosemide 40 Mg/4 Ml Vial) 40 mg IVPUSH DAILY [facility] Last Admin: 03/03/21 11:44 Dose: 40 mg Documented by: Furosemide (Furosemide 40 Mg Tab) 40 mg PO DAILY [facility] Last Admin: 03/04/21 09:08 Dose: 40 mg Documented by: Sodium Chloride (Normal Saline) 1,000 mls @ 75 mls/hr IV ASDIRECTED [facility] Stop: 03/02/21 14:00 Last Admin: 03/02/21 06:44 Dose: 75 mls/hr Documented by: Rosuvastatin Calcium (Rosuvastatin 10 Mg Tab) 20 mg PO BEDTIME [facility] Last Admin: 03/01/21 20:37 Dose: 20 mg Documented by: Spironolactone (Spironolactone 25 Mg Tab) 25 mg PO DAILY [facility] Last Admin: 03/04/21 09:07 Dose: 25 mg Documented by: - Exam Quality Assessment: DVT Prophylaxis Urinary Catheter Total Time: 0Days 6Hours General: Alert, Oriented HEENT: Pupils Equal Neck: Supple Lungs: Normal Respiratory Effort, Wheezing Cardiovascular: Regular Rate, Regular Rhythm GI/Abdominal Exam: Normal Bowel Sounds, Soft, Non-Tender, No Distention (Male) Exam: Other (Bright red blood in urinary catheter) Extremities: Pedal Edema (1-2+), Other (Mild lower extremity excoriations, improving) Psy/Mental Status: Alert - Patient Data Lab Results Last 24 hrs: Laboratory Results - last 24 hr 03/05/21 03/05/21 03/05/21 Range/Units 09:45 10:54 16:41 WBC (4.23-9.07) K/mm3 RBC (4.63-6.08) M/mm3 Hgb (13.7-17.5) gm/dl Hct (40.1-51.0) % MCV (79.0-92.2) fl MCH (25.7-32.2) pg MCHC (32.2-35.5) g/dl RDW Std Deviation (35.1-43.9) fL Plt Count (163-337) K/mm3 MPV (9.4-12.3) fl Neut % (Auto) (34.0-67.9) % Lymph % (Auto) (21.8-53.1) % Boundary % (Auto) (5.3-12.2) % Eos % (Auto) (0.8-7.0) Baso % (Auto) (0.1-1.2) % Neut # (Auto) (1.78-5.38) K/mm3 Lymph # (Auto) (1.32-3.57) K/mm3 Boundary # (Auto) (0.30-0.82) K/mm3 Eos # (Auto) (0.04-0.54) K/mm3 Baso # (Auto) (0.01-0.08) K/mm3 Sodium (136-145) mEq/L Potassium (3.5-5.1) mEq/L Chloride (98-107) mEq/L Carbon Dioxide (21-32) mEq/L Anion Gap (5-15) BUN (7-18) mg/dL Creatinine (0.7-1.3) mg/dL Est Cr Clr Drug Dosing mL/min Estimated GFR (MDRD) (>60) mL/min BUN/Creatinine Ratio (14-18) Glucose (70-99) mg/dL POC Glucose 124 H 124 H (70-99) mg/dL Calcium (8.5-10.1) mg/dL Magnesium (1.8-2.4) mg/dL Total Bilirubin (0.2-1.0) mg/dL AST (15-37) U/L ALT (16-63) U/L Alkaline Phosphatase (46-116) U/L C-Reactive Protein (<1.0) mg/dL Total Protein (6.4-8.2) g/dl Albumin (3.4-5.0) g/dl Globulin gm/dL Albumin/Globulin Ratio (1-2) U Hyaline Cast (Auto) 5-10 H (0-5) /lpf Urine RBC 0-5 (0-5) /hpf Urine WBC 0-5 (0-5) /hpf Ur Epithelial Cells 0-5 (0-5) /hpf Urine Bacteria Few (FEW) /hpf Urine Mucus Moderate H (FEW) /hpf SARS-CoV-2 RNA (JERRY) (NEGATIVE) 03/05/21 03/06/21 03/06/21 Range/Units 20:46 05:04 05:04 WBC 9.85 H (4.23-9.07) K/mm3 RBC 3.96 L (4.63-6.08) M/mm3 Hgb 12.3 L (13.7-17.5) gm/dl Hct 38.4 L (40.1-51.0) % MCV 97.0 H (79.0-92.2) fl MCH 31.1 (25.7-32.2) pg MCHC 32.0 L (32.2-35.5) g/dl RDW Std Deviation 53.4 H (35.1-43.9) fL Plt Count 300 (163-337) K/mm3 MPV 9.1 L (9.4-12.3) fl Neut % (Auto) 78.0 H (34.0-67.9) % Lymph % (Auto) 12.3 L (21.8-53.1) % Boundary % (Auto) 8.4 (5.3-12.2) % Eos % (Auto) 0.7 L (0.8-7.0) Baso % (Auto) 0.2 (0.1-1.2) % Neut # (Auto) 7.68 H (1.78-5.38) K/mm3 Lymph # (Auto) 1.21 L (1.32-3.57) K/mm3 Boundary # (Auto) 0.83 H (0.30-0.82) K/mm3 Eos # (Auto) 0.07 (0.04-0.54) K/mm3 Baso # (Auto) 0.02 (0.01-0.08) K/mm3 Sodium 138 (136-145) mEq/L Potassium 4.5 (3.5-5.1) mEq/L Chloride 103 (98-107) mEq/L Carbon Dioxide 23 (21-32) mEq/L Anion Gap 16.5 H (5-15) BUN 48 H (7-18) mg/dL Creatinine 2.1 H (0.7-1.3) mg/dL Est Cr Clr Drug Dosing 31.33 mL/min Estimated GFR (MDRD) 31 (>60) mL/min BUN/Creatinine Ratio 22.9 H (14-18) Glucose 127 H (70-99) mg/dL POC Glucose 139 H (70-99) mg/dL Calcium 8.6 (8.5-10.1) mg/dL Magnesium 2.1 (1.8-2.4) mg/dL Total Bilirubin 0.8 (0.2-1.0) mg/dL AST 60 H (15-37) U/L ALT 116 H (16-63) U/L Alkaline Phosphatase 90 (46-116) U/L C-Reactive Protein 0.5 (<1.0) mg/dL Total Protein 6.2 L (6.4-8.2) g/dl Albumin 3.3 L (3.4-5.0) g/dl Globulin 2.9 gm/dL Albumin/Globulin Ratio 1.1 (1-2) U Hyaline Cast (Auto) (0-5) /lpf Urine RBC (0-5) /hpf Urine WBC (0-5) /hpf Ur Epithelial Cells (0-5) /hpf Urine Bacteria (FEW) /hpf Urine Mucus (FEW) /hpf SARS-CoV-2 RNA (JERRY) (NEGATIVE) 03/06/21 03/06/21 Range/Units 06:26 08:56 WBC (4.23-9.07) K/mm3 RBC (4.63-6.08) M/mm3 Hgb (13.7-17.5) gm/dl Hct (40.1-51.0) % MCV (79.0-92.2) fl MCH (25.7-32.2) pg MCHC (32.2-35.5) g/dl RDW Std Deviation (35.1-43.9) fL Plt Count (163-337) K/mm3 MPV (9.4-12.3) fl Neut % (Auto) (34.0-67.9) % Lymph % (Auto) (21.8-53.1) % Boundary % (Auto) (5.3-12.2) % Eos % (Auto) (0.8-7.0) Baso % (Auto) (0.1-1.2) % Neut # (Auto) (1.78-5.38) K/mm3 Lymph # (Auto) (1.32-3.57) K/mm3 Boundary # (Auto) (0.30-0.82) K/mm3 Eos # (Auto) (0.04-0.54) K/mm3 Baso # (Auto) (0.01-0.08) K/mm3 Sodium (136-145) mEq/L Potassium (3.5-5.1) mEq/L Chloride (98-107) mEq/L Carbon Dioxide (21-32) mEq/L Anion Gap (5-15) BUN (7-18) mg/dL Creatinine (0.7-1.3) mg/dL Est Cr Clr Drug Dosing mL/min Estimated GFR (MDRD) (>60) mL/min BUN/Creatinine Ratio (14-18) Glucose (70-99) mg/dL POC Glucose 111 H (70-99) mg/dL Calcium (8.5-10.1) mg/dL Magnesium (1.8-2.4) mg/dL Total Bilirubin (0.2-1.0) mg/dL AST (15-37) U/L ALT (16-63) U/L Alkaline Phosphatase (46-116) U/L C-Reactive Protein (<1.0) mg/dL Total Protein (6.4-8.2) g/dl Albumin (3.4-5.0) g/dl Globulin gm/dL Albumin/Globulin Ratio (1-2) U Hyaline Cast (Auto) (0-5) /lpf Urine RBC (0-5) /hpf Urine WBC (0-5) /hpf Ur Epithelial Cells (0-5) /hpf Urine Bacteria (FEW) /hpf Urine Mucus (FEW) /hpf SARS-CoV-2 RNA (JERRY) Negative (NEGATIVE) Result Diagrams: 03/06/21 05:04 03/06/21 05:04 Sepsis Event Note - Evaluation Sepsis Screening Result: No Definite Risk - Focused Exam Vital Signs: Vital Signs Temp Pulse Resp BP Pulse Ox Pulse Ox 03/06/21 09:04 67 131/93 H 03/06/21 08:24 100 03/06/21 08:08 97.0 F 67 23 H 131/93 H 100 03/06/21 05:34 98.1 F 66 20 154/83 H 92 L 03/06/21 02:34 96 03/05/21 23:51 96.3 F L 73 24 H 162/86 H 93 L - Problem List & Annotations (1) Leg pain, bilateral SNOMED Code(s): 14780155, 326391327 Code(s): M79.604 - PAIN IN RIGHT LEG; M79.605 - PAIN IN LEFT LEG Status: Acute Current Visit: Yes (2) Acute renal insufficiency SNOMED Code(s): 687700320 Code(s): N28.9 - DISORDER OF KIDNEY AND URETER, UNSPECIFIED Status: Acute Current Visit: Yes (3) Prerenal acute renal failure SNOMED Code(s): 767667697088061 Code(s): N17.9 - ACUTE KIDNEY FAILURE, UNSPECIFIED Status: Acute Current Visit: Yes (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 SNOMED Code(s): 69305821, 492579417 Code(s): I50.40 - UNSP COMBINED SYSTOLIC AND DIASTOLIC (CONGESTIVE) HRT FAIL Status: Acute Priority: High Current Visit: No Qualifiers: Heart failure chronicity: acute Qualified Code(s): I50.41 - Acute combined systolic (congestive) and diastolic (congestive) heart failure (5) Elevated brain natriuretic peptide (BNP) level SNOMED Code(s): 600521894, 700567344 Code(s): R79.89 - OTHER SPECIFIED ABNORMAL FINDINGS OF BLOOD CHEMISTRY Status: Acute Priority: High Current Visit: No (6) Generalized weakness SNOMED Code(s): 31130562 Code(s): R53.1 - WEAKNESS Status: Acute Priority: High Current Visit: No (7) HTN (hypertension) SNOMED Code(s): 06432137 Code(s): I10 - ESSENTIAL (PRIMARY) HYPERTENSION Status: Chronic Priority: Medium Current Visit: No Qualifiers: Hypertension type: unspecified Qualified Code(s): I10 - Essential (primary) hypertension (8) History of coronary artery stent placement SNOMED Code(s): 595680285, 546332129 Code(s): Z95.5 - PRESENCE OF CORONARY ANGIOPLASTY IMPLANT AND GRAFT Status: Chronic Priority: Low Current Visit: No (9) Open wound, lower leg SNOMED Code(s): 178901584 Code(s): S81.809A - UNSPECIFIED OPEN WOUND, UNSPECIFIED LOWER LEG, INIT ENCNTR Status: Acute Current Visit: Yes (10) Hematuria SNOMED Code(s): 24516323 Code(s): R31.9 - HEMATURIA, UNSPECIFIED Status: Acute Current Visit: Yes - Problem List Review Problem List Initiated/Reviewed/Updated: Yes - My Orders Last 24 Hours: My Active Orders 03/05/21 10:34 Bladder Scan [RC] PRN Communication Order [RC] ASDIRECTED Notify Provider Intake and Out [RC] ASDIRECTED Urinary Catheter Assessment [RC] Q4H 03/05/21 10:45 Insert Urinary Catheter [OM.PC] PRN 03/05/21 15:15 Nystatin [Nystop] 0 gm TOP Q6H PRN 03/06/21 10:45 Insert Urinary Catheter [OM.PC] PRN - Plan Plan:: 75-year-old male with history of diabetes, peripheral vascular disease, mixed congestive heart failure presents to the emergency department with lower extrem ity pain. Lower extremity pain Peripheral vascular disease post lower extremity vascular stenting Coronary artery disease * Patient presents with worsening pain in his lower extremities. * Initial concern for CVA ruled out with MRI * Currently patient states he is having no pain. Pain is worse with ambulation. 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 Pseudonormal, grade 2, pattern of LV diastolic filling. Trace aortic and mitral valve regurgitation. * proBNP today is 27,672. This is likely spuriously high because of his renal failure. Patient has only minimal lower extremity edema and chest x-ray shows no significant vascular congestion. Lung sounds are mainly significant for wheezing. Diabetes * Hemoglobin A1c 6.3 * Home medications include Metformin Acute on chronic renal insufficiency/prerenal * BUN 60 and creatinine 2.3 * When patient was discharged from here in November creatinine was 1.3 * Estimated GFR 28 today and 54 on December 29 * Currently on torsemide 40 mg daily and spironolactone 25 mg daily Tobaccoism/COPD * Lungs wheezy throughout Review of his previous hospitalization shows he was discharged on Entresto which is not on his home meds at this time. He was also sent home on 40 mg of Lasix and 25 mg of spironolactone. This apparently was changed to torsemide 40 mg. Patient was also started on valsartan as an outpatient instead of Entresto. 03/02/2021 75-year-old male with history of diabetes, peripheral vascular disease, heart failure with reduced ejection fraction and diastolic failure, recent fracture of the right ankle in a walking boot and multiple lower extremity wounds. Admitted with worsening lower extremity pain, prerenal acute renal failure, and heart failure. Creatinine decreased from 2.3-2.1 and BUN decreased from 60-54. Estimated GFR is slightly improved from 28-31. Blood sugars well controlled in the low to mid one hundreds. He has been on normal saline 75 mL an hour. He does have what appears to be sleep apnea, but he will not keep the oximetry on his finger overnight. He did have a significant drop in oxygen saturations when he took a nap during the day. We will try to use CPAP overnight. This should help both his heart failure and his sleep apnea. Continue trying to give him duo nebs. Recheck CBC, CMP, mag in the morning. 03/03/2021 75-year-old male with acute on chronic renal insufficiency and heart failure with reduced ejection fraction and diastolic dysfunction continues to have slow, but consistent improvement in his renal function. Today his creatinine is down to 2.0 and BUN is 46. The still has a significant prerenal distribution. Yesterday I stopped his fluids because of increasing weight gain and swelling in his lower extremities. Today we will give him some Lasix 40 mg IV x1. We will follow his renal function very closely. Continue on DuoNeb for his COPD and sliding scale for his diabetes. Patient has multiple lower extremity excoriations and wounds that are being treated by physical therapy. At this time they recommend bacitracin ointment with nonadherent dressing. Patient will require placement at a skilled care facility secondary to him not being able to care for himself at home and his not able to care for him. 03/04/2021 75-year-old male with acute on chronic renal insufficiency and heart failure is slowly improving. Patient generally states he is feeling well and he is getting treatment of his lower extremity ulcers. Patient is currently awaiting placement. We are holding his valsartan secondary to his acute renal insufficiency and I am restarting his Lasix that he was discharged from our facility on. Torsemide has been stopped. Continue with spironolactone. 03/05/2021 75-year-old male with acute on chronic renal insufficiency and heart failure with no significant change overnight. Yesterday restarted his Lasix and kept him on his spironolactone and his creatinine went from 2.0-2.1. He does think he is getting some improvement in his legs. White count is normal at 8.6. BUN is 47. AST 70, ALT 88. Physical therapy has evaluated his lower extremity wounds and recommends Bactroban with nonadherent dressing. He still has 2+ pitting edema. Will hold his diuretics, Lasix and spironolactone, today and reevaluate renal function tomorrow. Also put compression stockings on. 03/06/2021 Patient developed urinary obstruction overnight and required Cadena catheter placement. Unfortunately, catheter had to be replaced because it was uncomfortable which caused some trauma. He has mild hematuria this morning. Patient will be monitored overnight to make sure that this clears. Renal function is stable with creatinine of 2.1 and BUN of 48. AST and ALT are stable at 60 and 116. Hemoglobin 12.3 which is higher than the 11.3 yesterday. Plan discharge tomorrow. Plan * Admit to medical floor on telemetry * PT * Hold Lasix 40 mg p.o. daily * Close monitoring of respiratory status * Nicotine patch 21 mcg daily * Stop torsemide * Hold spironolactone * Hold valsartan secondary to renal failure * Sliding scale insulin and bedside glucose monitoring 4 times daily * [place] for foot pain and continue nortriptyline 50 mg daily * Compression stockings * Follow renal function closely * VTE prophylaxis with Lovenox * CODE STATUS: Full code * career services representative informed me that family does not think she can take him home. Patient will be kept over the weekend for placement. Length of stay greater than 96 hours secondary to placement
[2021-03-06] MEDS: Rosuvastatin 10 MG Tab PO SCH ×2 (21:05)
[2021-03-06] MEDS: Nortriptyline 25 MG Cap PO SCH (21:06)
[2021-03-06] MEDS: Latanoprost 0.005% Ophth Soln 2.5 ML Bottle EYERT SCH (21:07)
[2021-03-07] MEDS: Albuterol/Ipratropium 3.0-0.5 MG/3 ML Neb Soln NEB SCH ×2 (02:32→08:24)
[2021-03-07] MEDS: Acetaminophen 325 MG Tab PO PRN (03:48)
[2021-03-07] MEDS: Insulin Lispro 100 Unit/ML 3 ML KwikPen SUBCUT SCH (06:50)
--- NOTE | 2021-03-07 09:25 | PCM.DCSUM1 ---
Discharge Summary - Hospital Course HPI Initial Comments: - History of Present Illness Initial Comments - Free Text/Narative: 75-year-old male who recently had lower extremity vascular surgery in [place] presented to the emergency department secondary to bilateral lower extremity pain. Currently patient states he is having no pain. Pain is worse with ambulation. 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 Initially patient was believed to have neurological symptoms consistent with a stroke. EMS staff believed his speech was worse than normal and noticed abnormal [id number] on the left. Yesterday patient was falling more frequently than normal per emergency department notes. MRI of the brain was done in the emergency department which was negative for acute changes. Chest x-ray showed cardiomegaly but nothing otherwise acute. Lab work did demonstrate a BUN of 60 with a creatinine of 2.3 which is significantly worse than when he was here and November. No records are available from his hospitalization in [place]. Patient has a walking boot on his right leg. EKG shows normal sinus rhythm with ventricular rate of 78 bpm. Interventricular conduction delay with inverted T waves in V5, 6, aVF, lead III, lead II. First- degree AV block. White count was 10.04. Assessment/Plan Comment:: 75-year-old male with history of diabetes, peripheral vascular disease, mixed congestive heart failure presents to the emergency department with lower extremity pain. Lower extremity pain Peripheral vascular disease post lower extremity vascular stenting Coronary artery disease * Patient presents with worsening pain in his lower extremities. * Initial concern for CVA ruled out with MRI * Currently patient states he is having no pain. Pain is worse with ambulation. 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 Pseudonormal, grade 2, pattern of LV diastolic filling. Trace aortic and mitral valve regurgitation. * proBNP today is 27,672. This is likely spuriously high because of his renal failure. Patient has only minimal lower extremity edema and chest x-ray shows no significant vascular congestion. Lung sounds are mainly significant for wheezing. Diabetes * Hemoglobin A1c 6.3 * Home medications include Metformin Acute on chronic renal insufficiency/prerenal * BUN 60 and creatinine 2.3 * When patient was discharged from here in November creatinine was 1.3 * Estimated GFR 28 today and 54 on December 29 * Currently on torsemide 40 mg daily and spironolactone 25 mg daily Tobaccoism/COPD * Lungs wheezy throughout Review of his previous hospitalization shows he was discharged on Entresto which is not on his home meds at this time. He was also sent home on 40 mg of Lasix and 25 mg of spironolactone. This apparently was changed to torsemide 40 mg. Patient was also started on valsartan as an outpatient instead of Entresto. Plan * Admit to medical floor on telemetry * PT * Gradual and cautious fluid resuscitation secondary to prerenal failure. * Close monitoring of respiratory status * Offer nicotine patch * Hold torsemide and continue spironolactone * Hold valsartan secondary to renal failure * Sliding scale insulin and bedside glucose monitoring 4 times daily * [place] for foot pain and continue nortriptyline 50 mg daily * VTE prophylaxis with Lovenox * CODE STATUS: Full code - Mortality Measure Prognosis:: Good Diagnosis: Stroke: No - Discharge Data Discharge Date: 03/07/21 Discharge Disposition: DC/Tfer to Assisted Care 63 Condition: Good - Referral to Home Health Primary Care Physician: Mary Jane Vaca MD - Discharge Diagnosis/Problem(s) (1) Leg pain, bilateral SNOMED Code(s): 75893192, 320231264 ICD Code: M79.604 - PAIN IN RIGHT LEG; M79.605 - PAIN IN LEFT LEG Status: Acute Current Visit: Yes (2) Acute renal insufficiency SNOMED Code(s): 659020684 ICD Code: N28.9 - DISORDER OF KIDNEY AND URETER, UNSPECIFIED Status: Acute Current Visit: Yes (3) Prerenal acute renal failure SNOMED Code(s): 063204716779660 ICD Code: N17.9 - ACUTE KIDNEY FAILURE, UNSPECIFIED Status: Acute Current Visit: Yes (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 SNOMED Code(s): 40359172, 888492569 ICD Code: I50.40 - UNSP COMBINED SYSTOLIC AND DIASTOLIC (CONGESTIVE) HRT FAIL Status: Acute Priority: High Current Visit: No Qualifiers: Heart failure chronicity: acute Qualified Code(s): I50.41 - Acute combined systolic (congestive) and diastolic (congestive) heart failure (5) Elevated brain natriuretic peptide (BNP) level SNOMED Code(s): 697984622, 350986394 ICD Code: R79.89 - OTHER SPECIFIED ABNORMAL FINDINGS OF BLOOD CHEMISTRY Status: Acute Priority: High Current Visit: No (6) Generalized weakness SNOMED Code(s): 08194174 ICD Code: R53.1 - WEAKNESS Status: Acute Priority: High Current Visit: No (7) HTN (hypertension) SNOMED Code(s): 18033740 ICD Code: I10 - ESSENTIAL (PRIMARY) HYPERTENSION Status: Chronic Priority: Medium Current Visit: No Qualifiers: Hypertension type: unspecified Qualified Code(s): I10 - Essential (primary) hypertension (8) History of coronary artery stent placement SNOMED Code(s): 863143700, 143611617 ICD Code: Z95.5 - PRESENCE OF CORONARY ANGIOPLASTY IMPLANT AND GRAFT Status: Chronic Priority: Low Current Visit: No (9) Open wound, lower leg SNOMED Code(s): 236143762 ICD Code: S81.809A - UNSPECIFIED OPEN WOUND, UNSPECIFIED LOWER LEG, INIT ENCNTR Status: Acute Current Visit: Yes (10) Hematuria SNOMED Code(s): 34193784 ICD Code: R31.9 - HEMATURIA, UNSPECIFIED Status: Acute Current Visit: Yes - Patient Summary/Data Consults: Consultations 03/02/21 15:49 PT Evaluation and Treatment [CONS] Routine Hospital Course: 03/02/2021 75-year-old male with history of diabetes, peripheral vascular disease, heart failure with reduced ejection fraction and diastolic failure, recent fracture of the right ankle in a walking boot and multiple lower extremity wounds. Admitted with worsening lower extremity pain, prerenal acute renal failure, and heart failure. Creatinine decreased from 2.3-2.1 and BUN decreased from 60-54. Estimated GFR is slightly improved from 28-31. Blood sugars well controlled in the low to mid one hundreds. He has been on normal saline 75 mL an hour. He does have what appears to be sleep apnea, but he will not keep the oximetry on his finger overnight. He did have a significant drop in oxygen saturations when he took a nap during the day. We will try to use CPAP overnight. This should help both his heart failure and his sleep apnea. Continue trying to give him duo nebs. Recheck CBC, CMP, mag in the morning. 03/03/2021 75-year-old male with acute on chronic renal insufficiency and heart failure with reduced ejection fraction and diastolic dysfunction continues to have slow, but consistent improvement in his renal function. Today his creatinine is down to 2.0 and BUN is 46. The still has a significant prerenal distribution. Yesterday I stopped his fluids because of increasing weight gain and swelling in his lower extremities. Today we will give him some Lasix 40 mg IV x1. We will follow his renal function very closely. Continue on DuoNeb for his COPD and sliding scale for his diabetes. Patient has multiple lower extremity excoriations and wounds that are being treated by physical therapy. At this time they recommend bacitracin ointment with nonadherent dressing. Patient will require placement at a skilled care facility secondary to him not being able to care for himself at home and his not able to care for him. 03/04/2021 75-year-old male with acute on chronic renal insufficiency and heart failure is slowly improving. Patient generally states he is feeling well and he is getting treatment of his lower extremity ulcers. Patient is currently awaiting placement. We are holding his valsartan secondary to his acute renal insufficiency and I am restarting his Lasix that he was discharged from our facility on. Torsemide has been stopped. Continue with spironolactone. 03/05/2021 75-year-old male with acute on chronic renal insufficiency and heart failure with no significant change overnight. Yesterday restarted his Lasix and kept him on his spironolactone and his creatinine went from 2.0-2.1. He does think he is getting some improvement in his legs. White count is normal at 8.6. BUN is 47. AST 70, ALT 88. Physical therapy has evaluated his lower extremity wounds and recommends Bactroban with nonadherent dressing. He still has 2+ pitting edema. Will hold his diuretics, Lasix and spironolactone, today and reevaluate renal function tomorrow. Also put compression stockings on. 03/06/2021 Patient developed urinary obstruction overnight and required Cadena catheter placement. Unfortunately, catheter had to be replaced because it was uncomfort able which caused some trauma. He has mild hematuria this morning. Patient will be monitored overnight to make sure that this clears. Renal function is stable with creatinine of 2.1 and BUN of 48. AST and ALT are stable at 60 and 116. Hemoglobin 12.3 which is higher than the 11.3 yesterday. Plan discharge tomorrow. 03/07/2021 Patient did remove his Cadena catheter last night and nursing staff reinserted it. There was no bleeding this morning. Renal function continues to be stable with creatinine of 2.0. His lungs had faint crackles this morning so I restarted his spironolactone and put him back at Lasix at 40 mg daily. BUN to creatinine ratio is still above 20, but his BUN has come down from 60 to 47. He still has some mild lower extremity edema, 1-2+. He should continue with compression stockings and wound care. AST and ALT are continuing to improve. Patient will be discharged today to [facility] facility. - Patient Instructions Diet: Heart Healthy Diet Activity: As Tolerated Driving: Do Not Drive Showering/Bathing: May Shower Other/Special Instructions: Repeat BMP in one week and follow up with PCP. - Discharge Plan *PRESCRIPTION DRUG MONITORING PROGRAM REVIEWED*: No *COPY OF PRESCRIPTION DRUG MONITORING REPORT IN PATIENT AN: No Prescriptions/Med Rec: Spironolactone [Aldactone] 25 mg PO DAILY #30 tablet Albuterol/Ipratropium [DuoNeb 3.0-0.5 MG/3 ML] 3 ml NEB Q6HRRT #120 neb Nicotine [Habitrol] 21 mg TRDERM DAILY #30 patch Furosemide [Lasix] 40 mg PO DAILY #30 tab Latanoprost/Pf [Latanoprost 0.005% Eye Drop] 1 drop EYERT BEDTIME #1 bottle Metoprolol Succinate 200 mg PO DAILY #30 tab.er.24h Multivitamin-Min/Iron/FA/Vit K [Multi-Day Plus Minerals Tablet] 1 tab PO DAILY #30 tab Nortriptyline 50 mg PO BEDTIME #60 cap Nystatin [Nystop] 0 gm TOP Q6H PRN #1 bottle PRN Reason: excoriation PARoxetine HCl [Paxil] 20 mg PO DAILY #30 tab Clopidogrel Bisulfate [Plavix] 75 mg PO DAILY #30 tab Rosuvastatin Calcium 40 mg PO BEDTIME #30 tab Home Medications: Home Meds Nortriptyline HCl [Pamelor] 50 mg PO BEDTIME 12/26/20 [History] Albuterol/Ipratropium [DuoNeb 3.0-0.5 MG/3 ML] 3 ml NEB Q6HRRT #120 neb 03/07/21 [Rx] Clopidogrel Bisulfate [Plavix] 75 mg PO DAILY #30 tab 03/07/21 [Rx] Furosemide [Lasix] 40 mg PO DAILY #30 tab 03/07/21 [Rx] Latanoprost/Pf [Latanoprost 0.005% Eye Drop] 1 drop EYERT BEDTIME #1 bottle 03/07/21 [Rx] Metoprolol Succinate 200 mg PO DAILY #30 tab.er.24h 03/07/21 [Rx] Multivitamin-Min/Iron/FA/Vit K [Multi-Day Plus Minerals Tablet] 1 tab PO DAILY #30 tab 03/07/21 [Rx] Nicotine [Habitrol] 21 mg TRDERM DAILY #30 patch 03/07/21 [Rx] Nortriptyline 50 mg PO BEDTIME #60 cap 03/07/21 [Rx] Nystatin [Nystop] 0 gm TOP Q6H PRN #1 bottle 03/07/21 [Rx] PARoxetine HCl [Paxil] 20 mg PO DAILY #30 tab 03/07/21 [Rx] Remove Patch 0 ea TRDERM DAILY #0 each 03/07/21 [Rx] Rosuvastatin Calcium 40 mg PO BEDTIME #30 tab 03/07/21 [Rx] Rosuvastatin [Crestor] 40 mg PO BEDTIME tablet 03/07/21 [Rx] Spironolactone [Aldactone] 25 mg PO DAILY #30 tablet 03/07/21 [Rx] Oxygen Therapy Mode: Room Air Patient Handouts: Heart-Healthy Eating Plan, [id number], Diabetes Mellitus and Sick Day Management, Heart Failure Action Plan, Steps to Quit Smoking Forms: ED Department Discharge Referrals: Mary Jane Vaca MD [Primary Care Provider] - (follow up as needed.) - Discharge Summary/Plan Comment DC Time >30 min.: Yes Total # of Minutes for Discharge Time: 40 Total time spent includes seeing the patient, doing discharge paperwork, and arranging care. - General Info Date of Service: 03/07/21 Admission Dx/Problem (Free Text: Admission Diagnosis/Problem Admission Diagnosis/Problem Prerenal renal failure Subjective Update: Patient doing well. Nothing significant overnight. He did remove his own Cadena without significant trauma. Functional Status: Reports: Pain Controlled - Review of Systems General: Reports: No Symptoms HEENT: Reports: No Symptoms Pulmonary: Reports: No Symptoms Cardiovascular: Reports: No Symptoms Gastrointestinal: Reports: No Symptoms Musculoskeletal: Reports: No Symptoms - Patient Data Vitals - Most Recent: Last Vital Signs Temp 97.5 F 03/07/21 03:48 Pulse 67 03/07/21 03:48 Resp 20 03/07/21 03:48 BP 134/80 03/07/21 03:48 Pulse Ox 91 L 03/07/21 08:25 Weight - Most Recent: 186 lb 9.6 oz I&O - Last 24 hours: Intake & Output 03/06/21 03/07/21 03/07/21 22:59 06:59 14:59 Intake Total 200 300 Output Total 400 350 Balance -200 -50 Lab Results - Last 24 hrs: Laboratory Results - last 24 hr 03/06/21 03/06/21 03/06/21 Range/Units 08:56 10:54 17:17 WBC (4.23-9.07) K/mm3 RBC (4.63-6.08) M/mm3 Hgb (13.7-17.5) gm/dl Hct (40.1-51.0) % MCV (79.0-92.2) fl MCH (25.7-32.2) pg MCHC (32.2-35.5) g/dl RDW Std Deviation (35.1-43.9) fL Plt Count (163-337) K/mm3 MPV (9.4-12.3) fl Neut % (Auto) (34.0-67.9) % Lymph % (Auto) (21.8-53.1) % [place] % (Auto) (5.3-12.2) % Eos % (Auto) (0.8-7.0) Baso % (Auto) (0.1-1.2) % Neut # (Auto) (1.78-5.38) K/mm3 Lymph # (Auto) (1.32-3.57) K/mm3 [place] # (Auto) (0.30-0.82) K/mm3 Eos # (Auto) (0.04-0.54) K/mm3 Baso # (Auto) (0.01-0.08) K/mm3 Sodium (136-145) mEq/L Potassium (3.5-5.1) mEq/L Chloride (98-107) mEq/L Carbon Dioxide (21-32) mEq/L Anion Gap (5-15) BUN (7-18) mg/dL Creatinine (0.7-1.3) mg/dL Est Cr Clr Drug Dosing mL/min Estimated GFR (MDRD) (>60) mL/min BUN/Creatinine Ratio (14-18) Glucose (70-99) mg/dL POC Glucose 150 H 123 H (70-99) mg/dL Calcium (8.5-10.1) mg/dL Magnesium (1.8-2.4) mg/dL Total Bilirubin (0.2-1.0) mg/dL AST (15-37) U/L ALT (16-63) U/L Alkaline Phosphatase (46-116) U/L Total Protein (6.4-8.2) g/dl Albumin (3.4-5.0) g/dl Globulin gm/dL Albumin/Globulin Ratio (1-2) SARS-CoV-2 RNA (JERRY) Negative (NEGATIVE) 03/06/21 03/07/21 03/07/21 Range/Units 21:07 04:54 04:54 WBC 10.68 H (4.23-9.07) K/mm3 RBC 3.86 L (4.63-6.08) M/mm3 Hgb 12.2 L (13.7-17.5) gm/dl Hct 37.5 L (40.1-51.0) % MCV 97.2 H (79.0-92.2) fl MCH 31.6 (25.7-32.2) pg MCHC 32.5 (32.2-35.5) g/dl RDW Std Deviation 52.5 H (35.1-43.9) fL Plt Count 274 (163-337) K/mm3 MPV 9.0 L (9.4-12.3) fl Neut % (Auto) 80.0 H (34.0-67.9) % Lymph % (Auto) 11.0 L (21.8-53.1) % [place] % (Auto) 7.9 (5.3-12.2) % Eos % (Auto) 0.6 L (0.8-7.0) Baso % (Auto) 0.2 (0.1-1.2) % Neut # (Auto) 8.56 H (1.78-5.38) K/mm3 Lymph # (Auto) 1.17 L (1.32-3.57) K/mm3 [place] # (Auto) 0.84 H (0.30-0.82) K/mm3 Eos # (Auto) 0.06 (0.04-0.54) K/mm3 Baso # (Auto) 0.02 (0.01-0.08) K/mm3 Sodium 139 (136-145) mEq/L Potassium 4.3 (3.5-5.1) mEq/L Chloride 105 (98-107) mEq/L Carbon Dioxide 22 (21-32) mEq/L Anion Gap 16.3 H (5-15) BUN 47 H (7-18) mg/dL Creatinine 2.0 H (0.7-1.3) mg/dL Est Cr Clr Drug Dosing 32.90 mL/min Estimated GFR (MDRD) 33 (>60) mL/min BUN/Creatinine Ratio 23.5 H (14-18) Glucose 121 H (70-99) mg/dL POC Glucose 132 H (70-99) mg/dL Calcium 8.4 L (8.5-10.1) mg/dL Magnesium 2.2 (1.8-2.4) mg/dL Total Bilirubin 0.7 (0.2-1.0) mg/dL AST 41 H (15-37) U/L ALT 96 H (16-63) U/L Alkaline Phosphatase 88 (46-116) U/L Total Protein 5.9 L (6.4-8.2) g/dl Albumin 3.0 L (3.4-5.0) g/dl Globulin 2.9 gm/dL Albumin/Globulin Ratio 1.0 (1-2) SARS-CoV-2 RNA (JERRY) (NEGATIVE) 03/07/21 Range/Units 06:39 WBC (4.23-9.07) K/mm3 RBC (4.63-6.08) M/mm3 Hgb (13.7-17.5) gm/dl Hct (40.1-51.0) % MCV (79.0-92.2) fl MCH (25.7-32.2) pg MCHC (32.2-35.5) g/dl RDW Std Deviation (35.1-43.9) fL Plt Count (163-337) K/mm3 MPV (9.4-12.3) fl Neut % (Auto) (34.0-67.9) % Lymph % (Auto) (21.8-53.1) % [place] % (Auto) (5.3-12.2) % Eos % (Auto) (0.8-7.0) Baso % (Auto) (0.1-1.2) % Neut # (Auto) (1.78-5.38) K/mm3 Lymph # (Auto) (1.32-3.57) K/mm3 [place] # (Auto) (0.30-0.82) K/mm3 Eos # (Auto) (0.04-0.54) K/mm3 Baso # (Auto) (0.01-0.08) K/mm3 Sodium (136-145) mEq/L Potassium (3.5-5.1) mEq/L Chloride (98-107) mEq/L Carbon Dioxide (21-32) mEq/L Anion Gap (5-15) BUN (7-18) mg/dL Creatinine (0.7-1.3) mg/dL Est Cr Clr Drug Dosing mL/min Estimated GFR (MDRD) (>60) mL/min BUN/Creatinine Ratio (14-18) Glucose (70-99) mg/dL POC Glucose 111 H (70-99) mg/dL Calcium (8.5-10.1) mg/dL Magnesium (1.8-2.4) mg/dL Total Bilirubin (0.2-1.0) mg/dL AST (15-37) U/L ALT (16-63) U/L Alkaline Phosphatase (46-116) U/L Total Protein (6.4-8.2) g/dl Albumin (3.4-5.0) g/dl Globulin gm/dL Albumin/Globulin Ratio (1-2) SARS-CoV-2 RNA (JERRY) (NEGATIVE) Med Orders - Current: Current Medications Acetaminophen (Acetaminophen 325 Mg Tab) 650 mg PO Q4H PRN PRN Reason: Pain (Mild 1-3)/fever Last Admin: 03/07/21 03:48 Dose: 650 mg Documented by: Hydrocodone Bitart/Acetaminophen (Acetaminophen/Hydrocodone 325-5 Mg Tab) 1 tab PO Q4H PRN PRN Reason: Pain (moderate 4-6) Albuterol/Ipratropium (Albuterol/Ipratropium 3.0-0.5 Mg/3 Ml Neb Soln) 3 ml NEB Q6HRRT [facility] Last Admin: 03/07/21 08:24 Dose: 3 ml Documented by: Clopidogrel Bisulfate (Clopidogrel 75 Mg Tab) 75 mg PO DAILY [facility] Last Admin: 03/06/21 09:04 Dose: 75 mg Documented by: Enoxaparin Sodium (Enoxaparin 40 Mg/0.4 Ml Syringe) 40 mg SUBCUT DAILY [facility] Last Admin: 03/06/21 09:04 Dose: 40 mg Documented by: Insulin Human Lispro (Insulin Lispro 100 Unit/Ml 3 Ml Kwikpen) 0 unit SUBCUT QIDACANDBED [facility]; Protocol Last Admin: 03/07/21 06:50 Dose: Not Given Documented by: Latanoprost (Latanoprost 0.005% Ophth Soln 2.5 Ml Bottle) 0 ml EYERT BEDTIME [facility] Last Admin: 03/06/21 21:07 Dose: 1 drop Documented by: Metoprolol Succinate (Metoprolol Succinate 50 Mg Tab.Er) 200 mg PO DAILY [facility] Last Admin: 03/06/21 09:04 Dose: 200 mg Documented by: Miscellaneous Information (Remove Patch) 0 ea TRDERM DAILY [facility] Last Admin: 03/06/21 09:05 Dose: 1 ea Documented by: Nicotine (Nicotine 21 Mg/24 Hr Patch) 21 mg TRDERM DAILY [facility] Last Admin: 03/06/21 09:04 Dose: 21 mg Documented by: Nortriptyline HCl (Nortriptyline 25 Mg Cap) 50 mg PO BEDTIME [facility] Last Admin: 03/06/21 21:06 Dose: 50 mg Documented by: Nystatin (Nystatin Topical Powder 15 Gm Bottle) 0 gm TOP Q6H PRN PRN Reason: excoriation Last Admin: 03/06/21 02:54 Dose: 1 applic Documented by: Ondansetron HCl (Ondansetron 4 Mg/2 Ml Sdv) 4 mg IV Q6H PRN PRN Reason: Nausea/Vomiting Paroxetine HCl (Paroxetine 20 Mg Tab) 20 mg PO DAILY [facility] Last Admin: 03/06/21 09:04 Dose: 20 mg Documented by: Rosuvastatin Calcium (Rosuvastatin 10 Mg Tab) 40 mg PO BEDTIME [facility] Last Admin: 03/06/21 21:05 Dose: 40 mg Documented by: Discontinued Medications Furosemide (Furosemide 40 Mg/4 Ml Vial) 40 mg IVPUSH DAILY [facility] Last Admin: 03/03/21 11:44 Dose: 40 mg Documented by: Furosemide (Furosemide 40 Mg Tab) 40 mg PO DAILY [facility] Last Admin: 03/04/21 09:08 Dose: 40 mg Documented by: Sodium Chloride (Normal Saline) 1,000 mls @ 75 mls/hr IV ASDIRECTED [facility] Stop: 03/02/21 14:00 Last Admin: 03/02/21 06:44 Dose: 75 mls/hr Documented by: Rosuvastatin Calcium (Rosuvastatin 10 Mg Tab) 20 mg PO BEDTIME [facility] Last Admin: 03/01/21 20:37 Dose: 20 mg Documented by: Spironolactone (Spironolactone 25 Mg Tab) 25 mg PO DAILY [facility] Last Admin: 03/04/21 09:07 Dose: 25 mg Documented by: - Exam Quality Assessment: Denies: Supplemental Oxygen General: Reports: Alert, Oriented HEENT: Reports: Pupils Equal, Mucous Membr. Moist/[place] Neck: Reports: Supple Lungs: Reports: Normal Respiratory Effort, Crackles (Bibasilar) Cardiovascular: Reports: Regular Rate, Regular Rhythm GI/Abdominal Exam: Normal Bowel Sounds, Soft, Non-Tender, No Organomegaly, No Distention, No Abnormal Bruit, No Mass Extremities: Normal Inspection, Normal Range of Motion, Non-Tender, No Pedal Edema, Normal Capillary Refill Skin: Reports: Warm, Dry, Intact Psy/Mental Status: Reports: Alert, Normal Affect, Normal Mood
[2021-03-07] MEDS: Metoprolol Succinate 50 MG Tab.ER PO SCH (09:55)
[2021-03-07] MEDS: PARoxetine 20 MG Tab PO SCH (09:56)
[2021-03-07] MEDS: Clopidogrel 75 MG Tab PO SCH (09:56)
[2021-03-07] MEDS: Enoxaparin 40 MG/0.4 ML Syringe SUBCUT SCH (09:56)
[2021-03-07] MEDS: Nicotine 21 MG/24 Hr Patch TRDERM SCH (09:57)
== END 2021-03-07 11:15 | DRG 682 ==
LOC: SUPCPDRO 08:57 → JD.ED 08:57 → JD.MS 15:45
PROVIDERS: ADMIT Family Medicine; ATTEND Family Medicine
DX: N19 Unspecified kidney failure (principal); E86.0 Dehydration; R29.6 Repeated falls; H40.9 Unspecified glaucoma; E78.00 Pure hypercholesterolemia, unspecified; I10 Essential (primary) hypertension; N17.9 Acute kidney failure, unspecified; Z95.828 Presence of other vascular implants and grafts; G25.81 Restless legs syndrome; F32.A Depression, unspecified; E11.42 Type 2 diabetes mellitus with diabetic polyneuropathy; Z88.0 Allergy status to penicillin; Z79.84 Long term (current) use of oral hypoglycemic drugs; Z79.02 Long term (current) use of antithrombotics/antiplatelets; Z79.899 Other long term (current) drug therapy; I50.41 Acute combined systolic (congestive) and diastolic (congestive) heart failure; E11.9 Type 2 diabetes mellitus without complications; I73.9 Peripheral vascular disease, unspecified; I11.0 Hypertensive heart disease with heart failure; I25.10 Atherosclerotic heart disease of native coronary artery without angina pectoris; J44.9 Chronic obstructive pulmonary disease, unspecified; N28.9 Disorder of kidney and ureter, unspecified; R31.9 Hematuria, unspecified; S81.809A Unspecified open wound, unspecified lower leg, initial encounter; R53.1 Weakness; Z95.5 Presence of coronary angioplasty implant and graft; Z79.4 Long term (current) use of insulin; Z20.822 Contact with and (suspected) exposure to COVID-19
CPT/HCPCS: 36415; 70450; 70551; 71045; 80053; 83036; 84484; 85025; 85610; 85730; 87635; 93005; 99285; J7030; 51701; 51702; 51798; 81001; 82947; 83735; 83880; 84100; 86140; 94640; 94660; 94761; 94762; 97110-GP; 97116-GP; 97162-GP; 97530-GP; A9270-GY; J1650; J1815; J1940; J7620-GY; U0002